=== PATIENT | female | born 1985 | race Caucasian/White ===

== ENCOUNTER → 2017-04-17 16:45 | Outpatient (CLI) | payer BC, SELFPAY ==
[2017-04-17 18:34] LABS: Amphetamine Urine VISTA NEGATIVE (<1000 ng/mL); Barbiturate Urine VISTA NEGATIVE (< 200 ng/mL); Benzodiazepine Urine VISTA NEGATIVE (< 200 ng/mL); Cocaine Urine VISTA NEGATIVE (< 300 ng/mL); Ecstacy Urine VISTA NEGATIVE (< 500 ng/mL); Methadone Urine VISTA NEGATIVE (< 300 ng/mL); PCP Urine VISTA NEGATIVE (< 25 ng/mL); THC Urine VISTA NEGATIVE (< 50 ng/mL); Vista UDS pH Range 5
== END ==
PROVIDERS: Visit Provider Anesthesiology Pain Medicine
DX: F11.20 Opioid dependence, uncomplicated (principal)
CPT/HCPCS: 80307

== ENCOUNTER 2017-04-18 15:35 | Outpatient (RCR) | payer BC, SELFPAY ==
--- NOTE | 2017-04-28 00:22 | HP.PTEVAL ---
Patient's Visit Information RICHARD PHILLIPS is a 31 year old F referred to Physical Therapy by Maribel CATHERINE with a diagnosis of neck and arm pain. Date of Evaluation: 04/18/17 Physical Therapist: Jonathan Caro - Visit Plan Frequency: 2x /Week Duration: 4 Weeks Plan: Start with modalities to reduce symptoms, progressing to light PA mobs and cervical extension progress. Pt. may benefit from MRI at this point in time due to sensitively of symptoms and marked UE weakness. - Subjective Subjective: Pt. is here today for her initial evaluation with diagnosis of neck and arm pain. Pt. reports having a history of neck and back pain. Pt. reports no mechanism of injury with her current neck pain. 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 Pt. reports having N/T down both arms, no weakness noted. Pt. has increased pain: with lifting, looking up and down, driving, sleeping and working. Decreased pain- nothing really. Pt. reports having head aches as well. Pt. describes pain throughout cervical spine, UT, levator scapulea and radiating down her arms. Pt. is hopeful to reduce symptoms in order to complete her job without symptoms or limitations. - Pain neck Pain Intensity (Out of 10): 4 Pain Intensity Range: 4, 8 Bilateral UEs Pain Intensity (Out of 10): 4 Pain Intensity Range: 4, 8 - Objective POSTURE: FH positioning, rounded shoulders with overall slouched posture. Pt. has protracted scaulea bilaterally. PALAPTION: Pt. reprots having high levels of tenderness to bilateral UT to light touch. Pt. has high levels of pain throughout light palpation of cervical erector spinea and with grade III spring testing of C4-T1. Pt. has high levels of pain to light touch throughout cervical spine and scapualr muscles. NEUROLOGICAL: Pt. has normal sensation throughout bilateral UEs to light and sharp touch. Pt. has 2+ biceps and triceps DTR bilaterally. Pt. has no upper limbs tension noted with testing. ROM: CERVICAL SPINE- flexion nil loss increase NW, ext min loss increase NW, rotation min loss bilat increase NW, SB min loss increase NW bilat. Pt. has normal shoulder ROM without incrase in symptoms. MMT: CERVICAL SPINE- normal isometric testing- but pain noted with all testing. RUE- wrist/elbow 5/5 throughout; shoulder- flexuon 4+/5, abd 4/5, ext 5/5, ER 5/5, IR 5/5. LUE- wrist/elbow 5/5 throughout; shoulder- flexion 4+/5, abd 4+/5, ER 4+/5, IR 4/5, ext 4+/5. STABLE HELPER STRENGTH- RUE- 23#, 28#, 33#. LUE- 43#, 48#, 41#. Pt. is R hand dominant - Special Tests C/S Radiculapathy - Left Spurlings: Positive C/S Radiculapathy - Right Spurlings: Positive C/S Radiculapathy - Left Cervical distraction: Negative C/S Radiculapathy - Right Cervical distraction: Negative C/S Radiculapathy - Left Relief test: Negative C/S Radiculapathy - Right Relief test: Negative Sharp Cesar: Negative Vertebral Artery Test: Negative Alar Ligament Test: Negative Comments: pt. had dizziness with distraction, but neg. vetebral artery test Cervical Sitting: Protrusion - Mechanical Response: No effect Cervical Sitting: Protrusion - Symptoms During Testing: Increases Cervical Sitting: Protrusion - Symptoms After Testing: No worse Cervical Sitting: Retraction - Mechanical Response: No effect Cervical Sitting: Retraction - Symptoms During Testing: Increases Cervical Sitting: Retraction - Symptoms After Testing: Worse Cervical Sitting: Retraction-Extension - Mechanical Response: No effect Cerv Sitting: Retraction-Extension - Symptoms During Testing: Increases Cerv Sitting: Retraction-Extension - Symptoms After Testing: Worse Cervical Sitting: Sidebend Right - Mechanical Response: No effect Cervical Sitting: Sidebend Right - Symptoms During Testing: Increases Cervical Sitting: Sidebend Right - Symptoms After Testing: No worse Cervical Sitting: Sidebend Left - Mechanical Response: No effect Cervical Sitting: Sidebend Left - Symptoms During Testing: Increases Cervical Sitting: Sidebend Left - Symptoms After Testing: No worse Cervical Sitting: Rotation Right - Mechanical Response: No effect Cervical Sitting: Rotation Right - Symptoms During Testing: Increases Cervical Sitting: Rotation Right - Symptoms After Testing: No worse Cervical Sitting: Rotation Left - Mechanical Response: No effect Cervical Sitting: Rotation Left - Symptoms During Testing: Increases Cervical Sitting: Rotation Left - Symptoms After Testing: No worse Cervical Sitting: Flexion - Mechanical Response: No effect Cervical Sitting: Flexion - Symptoms During Testing: Increases Cervical Sitting: Flexion - Symptoms After Testing: No worse - Goals Goal 1:: Pt. to be I with HEP. Goal Time Frame: 4-6 Weeks Goal 2:: Pt. to have increased cervical spine ROM by 25% in all directions without increase in symptoms. 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 Goal Time Frame: 4-6 Weeks Goal 4:: Pt. to sleep without increase in symptoms allowing for increased quality of life. Goal Time Frame: 4-6 Weeks Goal 5:: Pt. to complete all work related activities without increase in symptoms. Goal Time Frame: 4-6 Weeks - Rehabilitation Potential Physical Therapy Diagnosis: Pt. has signs and symptoms consistent with nerve involvement, but was inconclusive secondary to higher levels of pain involved with all testing. Pt. did not have a directional prefernce with cervical spine testing this date. My concerns with this patient was her reports of dizziness with testing, MRI may be warranted at this point in time. Rehabilitation Potential: Fair - Anticipated Interventions Patient/Client Instruction: Educate patient on: Condition, Plan of Care, Risk Factors, Benefits of Fitness Program For the Purpose of:: To improve health and function, To foster healthy habits, To improve decision making, To facilitate caregiver knowledge, To improve self management, To prevent re-injury, To improve ability to perform tasks related to life management, To improve tolerance to ADL's Therapeutic Exercise to Include: Strength training, Power training, Body mechanics, Postural training, Flexibilty training, Passive ROM, Active ROM, Chary Exercises, Scapular Strength/Stabilization For the Purpose of:: To decrease pain, To decrease swelling/inflammation, To increase ROM, To improve nutrient delivery to tissue, To increase oxygenation perfusion, To improve muscle performance and motor function, To improve ability to perform ADL's, To increase tolerance to activity/condition/position, To improve performance and independence with ADL's, To decrease level of supervision to perform tasks, To improve health of tissue, To decrease soft tissue restriction Manual Therapy Techniques to Include: Trigger point massage, Mobilization, Functional dry needling, Soft tissue mobilization For the Purpose of:: To decrease pain, To decrease swelling/inflammation, To increase ROM, To improve nutrient delivery to tissue, To increase oxygenation perfusion, To improve muscle performance and motor function IF ES: Yes Cryotherapy (ice pack, ice massage): Yes Thermo therapy (hot pack): Yes Ultrasound (thermal/non thermal): Yes For the Purpose of:: To decrease pain, To increase ROM, To improve nutrient delivery to tissue, To increase oxygenation perfusion, To improve muscle performance and motor function Thank you for the opportunity to evaluate your patient. For Medicare and Medicare HMO plans, please review the plan of care and approve it. It will need to be FAXED BACK to us at [phone] for Medicare purposes. Please let me know if there are questions or concerns regarding this plan of care. Physician Signature: Date:
--- NOTE | 2017-06-09 13:33 | HP.PT.NRP ---
HP - Discharge Summary (1) - Patient Information RICHARD PHILLIPS was seen in my office for initial evaluation on 04/18/17. The following Plan of Care was established for this patient: Initial Frequency: 2x /Week Initial Duration: 4 Weeks - Anticipated Interventions Patient/Client Instruction: Educate patient on: Condition, Plan of Care, Risk Factors, Benefits of Fitness Program For the Purpose of:: To improve health and function, To foster healthy habits, To improve decision making, To facilitate caregiver knowledge, To improve self management, To prevent re-injury, To improve ability to perform tasks related to life management, To improve tolerance to ADL's Therapeutic Exercise to Include: Strength training, Power training, Body mechanics, Postural training, Flexibilty training, Passive ROM, Active ROM, Chary Exercises, Scapular Strength/Stabilization For the Purpose of:: To decrease pain, To decrease swelling/inflammation, To increase ROM, To improve nutrient delivery to tissue, To increase oxygenation perfusion, To improve muscle performance and motor function, To improve ability to perform ADL's, To increase tolerance to activity/condition/position, To improve performance and independence with ADL's, To decrease level of supervision to perform tasks, To improve health of tissue, To decrease soft tissue restriction Manual Therapy Techniques to Include: Trigger point massage, Mobilization, Functional dry needling, Soft tissue mobilization For the Purpose of:: To decrease pain, To decrease swelling/inflammation, To increase ROM, To improve nutrient delivery to tissue, To increase oxygenation perfusion, To improve muscle performance and motor function IF ES: Yes Cryotherapy (ice pack, ice massage): Yes Thermo therapy (hot pack): Yes Ultrasound (thermal/non thermal): Yes For the Purpose of:: To decrease pain, To increase ROM, To improve nutrient delivery to tissue, To increase oxygenation perfusion, To improve muscle performance and motor function This patient was last seen in our office 04/18/17. Pertinent comments regarding their Physical therapy will appear below: Pt. was seen for her initial evaluation for her neck pain. Pt. has not been seen in PT since, ~7 weeks. She will be DC from PT at this point in time. At this point I will be discontinuing this patient from physical therapy. I would be happy to see this patient again in the future if found appropriate by the physician. Thank you! Jonathan Caro
== END 2017-04-18 19:00 | disposition home or self-care (01) ==
LOC: PT 15:35
PROVIDERS: Visit Provider Anesthesiology Pain Medicine
DX: M54.2 Cervicalgia (principal); M79.603 Pain in arm, unspecified
CPT/HCPCS: 97161

== ENCOUNTER 2017-04-21 02:16 | Emergency (ER) | payer BC, SELFPAY ==
[2017-04-21 02:17] VITALS: BP 132/88; PULSE 79; RESP 17; TEMP 36.8; O2SAT 99; BMI 20.6
--- NOTE | 2017-04-21 02:45 | ED.DCSUM_ITS ---
- ER Visit Summary Date of Service: 04/21/17 Chief Complaint: Constipation History of Present Illness: The patient is a 31 F past medical history of chronic back pain and kidney stones. States she has had a history of constipation in the past. Her last normal bowel movement was on Friday. She is a very small bowel movement on Friday. She has been using milk of magnesia and laxatives without relief. She denies any vomiting. She just says her stomach feels full though is not having abdominal pain. She denies any dysuria and currently is on her menstrual period. She denies any fever. Physical Examination: Well-appearing young female. Vital signs are stable afebrile. She does not look septic toxic. No acute distress. H EENT exam unremarkable moist mucous membranes. Neck nontender no lymphadenopathy. Lungs clear to auscultation bilaterally. Heart regular rhythm no murmur. Abdomen soft, nondistended nontender normal bowel sounds no peritoneal signs. There is no signs of obstruction. She is no hernias or masses. There is no localizing tenderness. Moving all 4 extremities. Back nontender. Neurologic exam normal. Test Results: None Emergency Department Course and Treatment: Treated for acute constipation with magnesium citrate at home. Treatment Plan: Discharge to home with magnesium citrate. She knows to return if worse. Disposition: Discharge Impression: Acute constipation This note was generated with [employer] dictation software. It may contain incorrect words, spelling, and punctuation that were not noted in review of the chart prior to signing ED Disposition - Plan for ED Patient: Chief Complaint: Constipation Referrals: Care Physician,No Primary [Primary Care Provider] -
--- NOTE | 2017-04-21 02:46 | ED.DEP ---
ED Disposition - Plan for ED Patient: Disposition: Home or Assisted Living Chief Complaint: Constipation Instructions: ED Constipation Referrals: Dinah Gonsalves MD [STAFF PHYSICIAN] - 1-2 Days if not improving Additional Instructions: Plenty of water, prune juice, fruits, vegetables, fiber granola. Use magnesium citrate and should no bowel movement within the next several hours. It may cause some cramping. Return to the ER if increasing pain, abdominal distention or intractable vomiting.
[2017-04-21] MEDS: Magnesium Citrate 300 ML PO (02:53)
== END 2017-04-21 03:05 | disposition home or self-care (01) ==
PROVIDERS: Emergency Provider Emergency Medicine
DX: K59.00 Constipation, unspecified (principal); M54.9 Dorsalgia, unspecified; G89.29 Other chronic pain; Z87.442 Personal history of urinary calculi
CPT/HCPCS: 99282

== ENCOUNTER → 2017-07-10 16:16 | Outpatient (CLI) | payer BC, SELFPAY ==
--- NOTE | 2017-07-10 16:20 | RAD_ITS ---
STUDY: X-RAY - LUMBAR SPINE REASON FOR EXAM: Female, 31 years old. No known injury. Has ongoing back pain. Has had epideral injections with Dr. Handley before per the patient.. TECHNIQUE: 3 view(s) of the lumbar spine were obtained. COMPARISON: None FINDINGS: Normal lumbar lordosis. There is no substantial scoliosis. There is a normal alignment of the vertebrae. Normal vertebral bodies and endplates. Normal disc space heights. The soft tissue structures are unremarkable. RAD/Lumbar Spine 2 or 3 Views IMPRESSION: Normal x-ray examination of the lumbar spine. Electronically Signed: Kiran Schwab MD at 8:33 EDT Tel , Service support ,
== END ==
LOC: RAD 16:17
PROVIDERS: Visit Provider Anesthesiology Pain Medicine
DX: M54.9 Dorsalgia, unspecified (principal)
CPT/HCPCS: 72100

== ENCOUNTER → 2018-05-06 17:16 | Outpatient (CLI) | payer SELFPAY ==
[2018-05-06 18:07] LABS: Amphetamine Urine VISTA NEGATIVE (<1000 ng/mL); Barbiturate Urine VISTA NEGATIVE (< 200 ng/mL); Benzodiazepine Urine VISTA NEGATIVE (< 200 ng/mL); Cocaine Urine VISTA NEGATIVE (< 300 ng/mL); Ecstacy Urine VISTA NEGATIVE (< 500 ng/mL); Methadone Urine VISTA NEGATIVE (< 300 ng/mL); PCP Urine VISTA NEGATIVE (< 25 ng/mL); THC Urine VISTA NEGATIVE (< 50 ng/mL); Vista UDS pH Range 7
== END ==
PROVIDERS: Referring Provider Anesthesiology Pain Medicine; Visit Provider Anesthesiology Pain Medicine
DX: F11.20 Opioid dependence, uncomplicated (principal)
CPT/HCPCS: 80307

== ENCOUNTER 2018-07-13 10:19 | Emergency (ER) | payer OTHER, SELFPAY ==
[2018-07-13 10:20] VITALS: BP 143/99; PULSE 70; RESP 16; TEMP 36.6; O2SAT 100; BMI 20.3
[2018-07-13 11:41] VITALS: BP 118/92; BP 125/82; BP 129/94; PULSE 60; PULSE 64; PULSE 65
[2018-07-13] MEDS: 0.9% Normal Saline 1,000 ML 1000 ML IV (11:45)
[2018-07-13 11:51] LABS: Absolute Lymphocyte Count 1.77 X10^3/ul (0.83-4.51); Absolute Neutrophil Count 6.4 X10^3/uL (2.0-7.7); Basophil# 0.02 X10^3/uL; Basophil% 0.2 % (0-1); Eosinophil# 0.05 X10^3/uL; Eosinophils% 0.6 % (0-5); Hematocrit 38.6 % (37-47); Hemoglobin 12.4 g/dl (12.0-15.0); Lymphocyte # 1.77 X10^3/ul (4.0); Lymphocyte % 20.1 % (19-41); Mean Corp Hgb Conc 32.1 g/gl (32-36); Mean Corpuscular Hgb 27.6 pg (27.0-32.0); Mean Corpuscular Volume 85.8 fL (81-99); Monocyte# 0.55 X10^3/uL; Monocyte% 6.3 % (0-10); Neutrophil # 6.38 X10^3/uL (2.7-7.7); Neutrophil % 72.6 % (47-70); Platelet Count 371 K/mm3 (150-450); RBC Distribution Width CV 15.3 % (11.6-14.6); RBC Distribution Width SD 48.4 fl (35.1-43.9); White Blood Count 8.8 K/mm3 (4.4-11.0)
[2018-07-13 11:54] LABS: POSITIVE COUNT NO; POSITIVE DIFFERENTIAL NO; POSITIVE MORPHOLOGY NO
[2018-07-13 12:01] LABS: Anion Gap 8 (5-15); BUN 8 mg/dL (7-18); BUN/Creat Ratio 9.4 RATIO (10-20); Calcium,Total 8.9 mg/dL (8.5-10.1); Chloride 107 mmol/L (98-107); Creatinine, Serum 0.85 mg/dL (0.55-1.02); EST Glomerular Filtration Rate 83 mL/min (>60); Est Glom Filt Rate - Afr Amer 100 mL/min (>60); Estimated Creatinine Clearance 78.97 ml/min; Glucose 84 mg/dL (74-106); Sodium Level 139 mmol/L (136-145)
[2018-07-13 12:29] LABS: Internal QC Validated? YES +Cl - CLEAR BKGD; Pregnancy, Serum, hCG Quali. NEGATIVE Negative
--- NOTE | 2018-07-13 13:33 | ED.DCSUM_ITS ---
- ER Visit Summary Date of Service: 07/13/18 Chief Complaint: [Lightheadedness and vaginal bleeding] History of Present Illness: The patient is a 32 F [presents the emergency department complaint of feeling lightheaded and dizzy today. Patient states that she started her menstrual period yesterday. Patient has had some issues with irregular bleeding and up until a week ago she had taken some sort of a hormone to help regulate her bleeding. Patient states that she stopped bleeding for about a week and then the bleeding started again yesterday. This morning she is felt nauseated. Patient states that she has had bleeding like a heavy type. Has gone through 3 pads this morning. Patient does not think she is . Patient has history of fibromyalgia.] Physical Examination: [HEENT-PERRLA, EOMI. Cranial nerves II through XII grossly intact. TMs clear. Mucous membranes moist. No adenopathy. Cardiovascular-regular rate and rhythm without murmur or ectopy Lungs-clear to auscultation, chest wall stable without crepitus or subcu emphysema Abdomen-normoactive bowel sounds, soft, nontender, no rebound or rigidity, no peritoneal signs. Extremities-intact ?4, normal range of motion, normal pulses, atraumatic] Test Results: [Orthostatic vital signs were negative. CBC with additional count of 8.8, hemoglobin 12, hematocrit 39, placed 371. Chemistries unremarkable. hCG was negative.] Emergency Department Course and Treatment: [I discussed case with Dr. Quintero who will have her office call the patient today to set up a follow-up appointment within the next 1 to 2 days. 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 It may contain incorrect words, spelling, and punctuation that were not noted in review of the chart prior to signing ED Disposition - Plan for ED Patient: Referrals: Carlos Alberto Troncoso PA [Primary Care Provider] -
--- NOTE | 2018-07-13 13:33 | ED.DEP ---
ED Disposition - Plan for ED Patient: Instructions: ED Dizziness UKO, ED Bleed Irregular Vaginal Referrals: Carlos Alberto Troncoso PA [Primary Care Provider] - Fela Quintero DO [STAFF PHYSICIAN] - 1-2 Days if not improving
[2018-07-13 13:42] VITALS: BP 120/84; PULSE 66; RESP 17; O2SAT 100
--- NOTE | 2018-07-13 13:42 | ED.RN ---
IV DC'ED, CATHETER INTACT, SMALL GAUZE DRESSING PLACED. DISCHARGE INSTRUCTIONS GIVEN TO AND REVIEWED WITH PATIENT, PATIENT DENIES QUESTIONS OR CONCERNS AND VOICES UNDERSTANDING OF DISCHARGE INSTRUCTIONS. PT AMBULATES OUT OF ROOM WITHOUT DIFFICULTY.
== END 2018-07-13 13:42 | disposition home or self-care (01) ==
LOC: ED 11:14
PROVIDERS: Emergency Provider Emergency Medicine; Family Provider Physician Assistant; PCP Physician Assistant
DX: R42 Dizziness and giddiness (principal); N93.9 Abnormal uterine and vaginal bleeding, unspecified; R11.0 Nausea; M79.7 Fibromyalgia; Z79.899 Other long term (current) drug therapy
CPT/HCPCS: 80048; 84703; 85025; 96360; 96361; 99284; J7030; A4216

== ENCOUNTER 2019-10-07 12:21 | Emergency (ER) | payer OTHER, BC, SELFPAY ==
[2019-10-07 12:22] VITALS: BP 142/91; PULSE 72; RESP 14; TEMP 36.7; O2SAT 100
--- NOTE | 2019-10-07 13:04 | ED.VISSUMM ---
- ER Visit Summary Date of Service: 10/07/19 Chief Complaint: Lightheadedness History of Present Illness: The patient is a 33 F who presents with lightheadedness that began today while she was at work. Patient states she was working in the heat. Patient states she has a sensitivity to heat. Patient states that she felt lightheaded and felt like she was going to pass out. Patient states she drank a gallon of water today and does not think she is dehydrated. Patient denies any fevers or chills. Patient denies any nausea or vomiting. Patient denies any chest pain or shortness of breath. Physical Examination: Vital signs are stable. Patient is afebrile. Patient is in no acute distress. Oral mucosa is pink and moist. Neck is supple. Trachea is midline. There is no JVD noted. Heart was regular rate and rhythm. Lungs are clear and equal bilaterally. Abdomen is soft. Bowel sounds are normal. There is no tenderness. There is no rebound or guarding noted. Skin is warm dry. Cranial nerves II through XII are intact. There are no focal motor or sensory deficits noted. Extremities are intact. There is no calf tenderness or edema. Test Results: CBC and basic metabolic profile were within normal limits. Emergency Department Course and Treatment: Patient was advised of her results. Patient is feeling better on reevaluation. Patient was instructed to follow-up with her primary care physician in 5 to 7 days. Patient was given a note for work for today. Patient understood and was agreeable with the plan. All questions were answered. Disposition: Discharge home Impression: Heat exhaustion This note was generated with [employer] dictation software. It may contain incorrect words, spelling, and punctuation that were not noted in review of the chart prior to signing ED Disposition - Plan for ED Patient: Disposition: Home or Assisted Living Diagnosis: Heat exhaustion Instructions: ED Exhaustion Heat Referrals: Carlos Alberto Troncoso PA [Primary Care Provider] - 5-7 Days
[2019-10-07 13:55] LABS: Anion Gap 4 (5-15); BUN 10 mg/dL (7-18); BUN/Creat Ratio 11.5 RATIO (10-20); Calcium,Total 8.9 mg/dL (8.5-10.1); Chloride 107 mmol/L (98-107); Creatinine, Serum 0.87 mg/dL (0.55-1.02); EST Glomerular Filtration Rate 79 mL/min (>60); Est Glom Filt Rate - Afr Amer 96 mL/min (>60); Estimated Creatinine Clearance 75.33 ml/min; Glucose 85 mg/dL (74-106); Sodium Level 138 mmol/L (136-145)
[2019-10-07 13:56] LABS: Absolute Lymphocyte Count 2.61 X10^3/uL (0.83-4.51); Absolute Neutrophil Count 6.5 X10^3/uL (2.0-7.7); Basophil# 0.04 X10^3/uL; Basophil% 0.4 % (0-1); Eosinophil# 0.05 X10^3/uL; Eosinophils% 0.5 % (0-5); Hematocrit 41.7 % (37-47); Hemoglobin 13.2 g/dL (12.0-15.0); Lymphocyte # 2.61 X10^3/ul (4.0); Lymphocyte % 26.2 % (19-41); Mean Corp Hgb Conc 31.7 g/dL (32-36); Mean Corpuscular Volume 85.3 fL (81-99); Mean Platelet Vol. 9.1 fl (6.2-12.0); Monocyte# 0.67 X10^3/uL; Monocyte% 6.7 % (0-10); NRBC Flagged by Analyzer 0 % (0-5); Neutrophil # 6.53 X10^3/uL (2.7-7.7); Neutrophil % 65.6 % (47-70); Platelet Count 339 K/mm3 (150-450); RBC Distribution Width CV 14.8 % (11.6-14.6); RBC Distribution Width SD 46.2 fl (35.1-43.9); Red Blood Count 4.89 M/mm3 (4.2-5.4)
== END 2019-10-07 14:25 | disposition home or self-care (01) ==
PROVIDERS: Emergency Provider Emergency Medicine; PCP Physician Assistant
DX: T67.5XXA Heat exhaustion, unspecified, initial encounter (principal); X58.XXXA Exposure to other specified factors, initial encounter; Y93.9 Activity, unspecified; Y92.9 Unspecified place or not applicable; Y99.0 Civilian activity done for income or pay; M79.7 Fibromyalgia; Z79.899 Other long term (current) drug therapy
CPT/HCPCS: 80048; 85025; 99283; A4216

== ENCOUNTER → 2019-10-20 17:15 | Outpatient (CLI) | payer OTHER, BC, SELFPAY | PROVIDERS: PCP Physician Assistant; Referring Provider Family Medicine; Visit Provider Family Medicine | DX: Z20.828 Contact with and (suspected) exposure to other viral communicable diseases (principal) | CPT/HCPCS: 87635; C9803; U0003 ==

== ENCOUNTER 2021-05-03 12:15 | Outpatient (CLI) | payer BC, SELFPAY ==
[2021-05-03 13:53] LABS: Amphetamine Urine VISTA NEGATIVE (<1000 ng/mL); Barbiturate Urine VISTA NEGATIVE (< 200 ng/mL); Benzodiazepine Urine VISTA NEGATIVE (< 200 ng/mL); Cocaine Urine VISTA NEGATIVE (< 300 ng/mL); Ecstacy Urine VISTA NEGATIVE (< 500 ng/mL); Methadone Urine VISTA NEGATIVE (< 300 ng/mL); PCP Urine VISTA NEGATIVE (< 25 ng/mL); THC Urine VISTA NEGATIVE (< 50 ng/mL); Vista UDS pH Range 5
== END 2021-05-03 23:59 | disposition home or self-care (01) ==
PROVIDERS: Referring Provider Anesthesiology Pain Medicine; Visit Provider Anesthesiology Pain Medicine
DX: F11.20 Opioid dependence, uncomplicated (principal)
CPT/HCPCS: 80307

== ENCOUNTER → 2022-08-16 | Outpatient (CLI) | payer BC, SELFPAY ==
[2022-08-16 17:51] LABS: Thyroid Stim Hormone (TSH) 0.64 uIU/mL (0.358-3.74)
== END | disposition home or self-care (01) ==
PROVIDERS: PCP Nurse Practitioner Family; Referring Provider Obstetrics & Gynecology; Visit Provider Obstetrics & Gynecology
DX: N97.0 Female infertility associated with anovulation (principal)
CPT/HCPCS: 36415; 84443

== ENCOUNTER → 2023-04-04 | Outpatient (CLI) | payer BC, SELFPAY ==
[2023-04-04 16:20] LABS: Absolute Lymphocyte Count 2.37 X10^3/uL (0.83-4.51); Absolute Neutrophil Count 9.3 X10^3/uL (2.0-7.7); Basophil# 0.07 X10^3/uL; Basophil% 0.6 % (0-1); Eosinophil# 0.07 X10^3/uL; Eosinophils% 0.6 % (0-5); Hematocrit 37.8 % (37-47); Hemoglobin 11.9 g/dL (12.0-15.0); Lymphocyte # 2.37 X10^3/ul (0.83-4.51); Lymphocyte % 18.7 % (19-41); Mean Corp Hgb Conc 31.5 g/dL (32-36); Mean Corpuscular Volume 88.9 fL (81-99); Mean Platelet Vol. 9.1 fl (6.2-12.0); Monocyte% 6.3 % (0-10); NRBC Flagged by Analyzer 0 % (0-5); Neutrophil # 9.28 X10^3/uL (2.7-7.7); Neutrophil % 73.2 % (47-70); Platelet Count 289 K/mm3 (150-450); RBC Distribution Width CV 14.9 % (11.6-14.6); RBC Distribution Width SD 48.8 fl (35.1-43.9); Red Blood Count 4.25 M/mm3 (4.2-5.4); White Blood Count 12.7 K/mm3 (4.4-11.0)
[2023-04-04 16:56] LABS: Progesterone Level 3.21 ng/mL (See Comment)
--- OUTSIDE RECORDS SUMMARY | 2023-04-04 18:43 | XMS RPT_ITS | CCD ---
Author Name Unknown Address [address] [place] [address] Organization [facility] Care Team Providers Care [employer] Installer Name Role Phone [place] Attending Unava ilable LAUR[place], [facility] Primary Care Unava ilable POMER[place], [facility] Admitting Unava ilable Henrique Harveya S Unavailable Carlos Alberto Troncoso PA-C Primary Care Provider Deysi Harvey S Unavailable Carlos Alberto Troncoso PA-C Primary Care Provider NEO DAS APRN, CNP [facility], CNP Primary Care U DERREK Barksdale MD Attending Unavailable NEO DAS APRN, CNP Primary Care U MIKEY Price CNP Attending Unavailabl e NEO DAS APRN, CNP Attending U NEO Duke APRN, CNP Primary Care U Neo Artis CNP Primary Care Provider NEO BACH Primary Care Unavailable BIENVENIDO WILLIAMSON Referring Unavailable NEO BACH Primary Care Unavailable Carlos Alberto TRONCOSO Primary Care Unavailable Medications Current Medications Medication Drug Class(es) Dates Sig (Normalized) Sig (Original) acetaminophen 500 mg oral tablet (5 sources) Start: 02-27-2022 acetaminophen 500 mg oral tablet Dose : 1,000 mg = 2 tab(s), Oral, TID, PRN pain or fever, 0 Refill(s) Start Date: 02/27/22 Status: Ordered Completed/Discontinued Medications Medication Drug Class(es) Dates Sig (Normalized) Sig (Original) DULoxetine 30 mg delayed release oral capsule (3 sources) Serotonin and Norepinephrine Reuptake Inhibitor Start: 11-06-2021 take 1 capsule by mouth once daily DULoxetine (CYMBALTA) 30 mg capsule Take 30 mg by mouth once daily. 0 11/06/2021 Active Problems Problem Classification Problem Date Documented Da te Episodic/Chronic Calculus of urinary tract (6 sources) Kidney stone; Translations: [Calculus of kidney] 08-19-2013 Episodic Esophageal disorders (2 sources) Gastric reflux 10-16-2021 Chronic Headache; including migraine (2 sources) Headache 02-13-2022 Episodic Immunizations and screening for infectious disease (1 source) Suspected disease caused by 2019-nCoV; Translations: [Suspected COVID-19 virus infection] Episodic Other and unspecified benign neoplasm (2 sources) Benign neoplasm of muscle 11-06-2021 Episodic Other female genital disorders (6 sources) Cervical intraepithelial neoplasia grade 1; Translations: [Mild cervical dysplasia] 05-09-2011 Episodic Other lower respiratory disease (2 sources) Cough; Translations: [Subacute cough] Episodic Other non-traumatic joint disorders (1 source) Pain of right wrist; Translations: [Pain in right wrist] 01-15-2023 Episodic Other upper respiratory infections (2 sources) Acute sinusitis; Translations: [Acute sinusitis, unspecified] Episodic Ovarian cyst (6 sources) Cyst of ovary; Translations: [Unspecified ovarian cyst, unspecified side] 05-19-2014 Episodic Residual codes; unclassified (2 sources) Did not attend 12-17-2021 Episodic Results Test Name Value Interpretation Reference Range Facil ity Vital Signs Date Time Vital Sign Value Performing Clinician Jose estrella 01-15-2023 10:30-0500 Body temperature 97.9 [degF] Bienvenido Williamson APRN.CNP Work Phone: [facility] 01-15-2023 10:30-0500 Body weight 55.34 kg Bienvenido Williamson APRN.CNP Work Phone: [facility] 01-15-2023 10:30-0500 Diastolic blood pressure 78 mm[Hg] Bienvenido Clay CARE NAVIGATOR.SR. PAYROLL MANAGER Work Phone: [facility] 01-15-2023 10:30-0500 Heart rate 85 /min Bienvenido Williamson CARE NAVIGATOR.SR. PAYROLL MANAGER Work Phone: [facility] 01-15-2023 10:30-0500 Respiratory rate 21 /min Bienvenido Williamson CARE NAVIGATOR.SR. PAYROLL MANAGER Work Phone: [facility] 01-15-2023 10:30-0500 SaO2% (BldA) [Mass fraction] 99 % Bienvenido Williamson CARE NAVIGATOR.SR. PAYROLL MANAGER Work Phone: [facility] 01-15-2023 10:30-0500 Systolic blood pressure 122 mm[Hg] Bienvenido Williamson CARE NAVIGATOR.SR. PAYROLL MANAGER Work Phone: [facility] 02-04-2022 15:05-0500 Body temperature 98.4 [degF] Aaron Jean Baptiste MD Work Phone: [facility] 02-04-2022 15:05-0500 Body weight 53.71 kg Aaron Jean Baptiste MD Work Phone: [facility] 02-04-2022 15:05-0500 Diastolic blood pressure 88 mm[Hg] Aaron Jean Baptiste MD Work Phone: [facility] 02-04-2022 15:05-0500 Heart rate 87 /min Aaron Jean Baptiste MD Work Phone: [facility] 02-04-2022 15:05-0500 Respiratory rate 20 /min Aaron Jean Baptiste MD Work Phone: [facility] 02-04-2022 15:05-0500 SaO2% (BldA) [Mass fraction] 98 % Aaron Jean Baptiste MD Work Phone: [facility] 02-04-2022 15:05-0500 Systolic blood pressure 122 mm[Hg] Aaron Jean Baptiste MD Work Phone: [facility] Encounters Encounter Date Encounter Type Care Provider Facility Start: 01-15-2023 End: 01-15-2023 ambulatory NEO BACH Facility:[facility] Start: 01-15-2023 End: 01-15-2023 Patient encounter procedure Bienvenido Williamson APRN.CNP Work Phone: [facility] Procedures Date Procedure Procedure Detail Performing Clinician Start: 01-15-2023 Radex wrist complete minimum 3 views Bienvenido Williamson APRN.CNP Work Phone: Start: 03-31-2020 Adult depression screening assessment Katherine Garcia RN Plan of Treatment Date Care Activity Detail Author Start: 05-22-2030 Urine microalbumin profile DTaP,Tdap,Td Vaccine (10 - Td or Tdap) [facility] Start: 03-23-2025 Urine microalbumin profile DTAP,TDAP,TD (8 - Td or Tdap) [facility] Start: 11-14-2022 HPV TESTING HPV TESTING [facility] Start: 11-14-2022 PAP TESTING PAP TESTING [facility] Start: 10-11-2022 Influenza vaccination Influenza Vaccine (#1) [facility] Start: 02-10-2022 DEPRESSION ASSESSMENT DEPRESSION ASSESSMENT [facility] Start: 10-11-2021 Influenza vaccination INFLUENZA (#1) [facility] Start: 09-04-2021 End: 09-18-2021 Influenza virus A and B RNA and SARS-CoV-2 (COVID-19) N gene panel - Respiratory specimen by LEEANN with probe detection COVID WITH FLUA+B, ROUTINE Microbiology Routine Suspected COVID-19 virus infection Expected: 09/04/2021, Expires: 09/18/2021 [facility] Work Phone: Immunizations Immunization Date Immunization Notes Care Provider Vishal solano 12-16-2016 influenza, seasonal, injectable Katherine Garcia RN [facility] Work Phone: 12-16-2016 influenza virus vaccine, unspecified formulation Bienvenido Williamson APRN.CNP Work Phone: [facility] 11-01-2015 influenza, seasonal, injectable, preservative free Katherine Garcia RN [facility] 03-23-2015 tetanus toxoid, redu abdulaziz diphtheria toxoid, and acellular pertussis vaccine, adsorbed Katherine Garcia RN [facility] 11-23-2014 influenza, injectabl e, quadrivalent, contains preservative Katherine Garcia RN [facility] 11-10-2014 influenza, injectabl e, quadrivalent, preservative free Katherine Garcia RN [facility] 08-15-2014 tetanus toxoid, redu abdulaziz diphtheria toxoid, and acellular pertussis vaccine, adsorbed Katherine Garcia RN [facility] 04-10-2013 influenza, seasonal, injectable, preservative free Katherine Garcia RN [facility] 02-23-2013 influenza virus vaccine, unspecified formulation Katherine Garcia RN [facility] 11-10-2010 influenza virus vaccine, unspecified formulation Katherine Garcia RN [facility] Work Phone: 01-30-2007 Meningococcal, MCV4, unspecified conjugate formulation(groups A, C, Y and W-135) Katherine Garcia RN [facility] Work Phone: 04-19-2003 hepatitis B vaccine, pediatric or pediatric/adolescent dosage Katherine Garcia [facility] Work Phone: 04-19-2003 tetanus and diphther ia toxoids, not adsorbed, for adult use Katherine Garcia RN [facility] Work Phone: 11-03-2000 hepatitis B vaccine, pediatric or pediatric/adolescent dosage Katherine Garcia RN [facility] Work Phone: 10-02-2000 hepatitis B vaccine, pediatric or pediatric/adolescent dosage Katherine Garcia [facility] Work Phone: 10-02-2000 measles, mumps and rubella virus vaccine Katherine Garcia RN [facility] Work Phone: 12-30-1991 diphtheria, tetanus toxoids and pertussis vaccine Katherine Garcia RN [facility] Work Phone: 12-30-1991 trivalent poliovirus vaccine, live, oral Katherine Garcia RN [facility] Work Phone: 04-27-1990 haemophilus influenz ae type b vaccine, HbOC conjugate Katherine Garcia [facility] Work Phone: 05-07-1988 diphtheria, tetanus toxoids and pertussis vaccine Katherine Garcia RN [facility] Work Phone: 05-07-1988 measles, mumps and rubella virus vaccine Katherine Garcia RN [facility] Work Phone: 05-07-1988 trivalent poliovirus vaccine, live, oral Katherine Garcia RN [facility] Work Phone: 11-21-1987 diphtheria, tetanus toxoids and pertussis vaccine Katherine Garcia RN [facility] Work Phone: 05-05-1987 diphtheria, tetanus toxoids and pertussis vaccine Katherine Garcia RN [facility] Work Phone: 05-05-1987 trivalent poliovirus vaccine, live, oral Katherine Garcia [facility] Work Phone: 03-02-1987 diphtheria, tetanus toxoids and pertussis vaccine Katherine Garcia [facility] Work Phone: 03-02-1987 trivalent poliovirus vaccine, live, oral Katherine Garcia [facility] Work Phone: Payers Date Payer Category Payer Unknown [id number] 2021 Unknown [id number] 2021 Unknown [employer] C[employer] PPO OOS [id number] 2021-Present [phone] [address] [place] [address] PPO [id number] 2021 Unknown [id number] 2021 Unknown [id number] 1986 Unknown [id number] 1986 Unknown [id number] 1986 Unknown [id number] Social History Date Type Detail Facility Start: 02-04-2022 End: 02-13-2022 Tobacco smoking status NHIS Never smoked tobacco [facility] Start: 03-19-2021 End: 01-15-2023 Alcohol intake Current drinker of alcohol (finding) [facility] Start: 09-04-2021 History SDOH Alcohol Frequency 1 [facility] Start: 09-04-2021 History SDOH Alcohol Std Drinks 98 [facility] Start: 10-29-2010 History SDOH Alcohol Comment ocassionally [facility] Start: 09-04-2021 History SDOH Social Connections Phone 2 [facility] Start: 09-04-2021 History SDOH Social Connections Get Together 4 [facility] Start: 09-04-2021 History SDOH Social Connections Living 3 [facility] Start: 09-04-2021 History SDOH Physica l Activity DPW 5 [facility] Start: 09-04-2021 History SDOH Physica l Activity MPS 6 [facility] Start: 03-31-2020 Education 14 [facility] Start: 1985 Sex Assigned At Not on file C [facility] Start: 08-25-2021 End: 09-06-2021 Exposure to SARS-CoV-2 (event) Yes [facility] Start: 02-04-2022 Tobacco use and exposure Smoke less tobacco non-user [facility] Sex Assigned At Sex [facility] Start: 09-04-2021 End: 03-06-2022 History of Social function [facility] Start: 09-04-2021 End: 03-06-2022 Social connection and isolation panel [facility] Do you belong to any clubs or organizations such as scientologist groups, unions, fraternal or athletic groups, or school groups? No [facility] Are you now , , , , never or living with a partner? [facility] How often to you hav e a drink containing alcohol? Never [facility] How many standard dr inks containing alcohol do you have on a typical day? Patient refused [facility] Do you feel stress - tense, restless, nervous, or anxious, or unable to sleep at night because your mind is troubled all the time - these days [OSQ] Not at all [facility] (I/We) worried wheth er (my/our) food would run out before (I/we) got money to buy more. Never true [facility] Clinical Notes 02-08-2015 to 01-15-2023 Bienvenido Williamson APRN.SABINA - 01/15/2023 11:02 AM OSIELLabKaitlynn Jean Baptiste MD - 02/04/2022 3:07 PM ESTPatient Allan Washburn APRN.SABINA - 09/06/2021 2:13 PM EDT Note Date & Type Note Facility 01-15-2023 Note HNO ID: [id number] Author: Bienvenido Williamson APRN.SR. PAYROLL MANAGER Service: ? Author Type: Nurse Practitioner Type: Progress Notes Filed: 01/15/2023 11:27 AM Note Text: Subjective HPI HPI Richard Segovia is a 37 year old female who presents today for CC of right wrist pain, radiating to elbow and shoulder now. This started today. Has tried otc medication for relief. Symptoms are worsened by rom. Risk factors, hx of right wrist fracture. .Patient presents with: Pain: Right wrist pain, moving up arm x 1 day PAST MEDICAL HISTORY Diagnosis Date Chronic back pain Fibromyalgia Hypoglycemia, unspecified loss of conciousness mild dysplasia of cervix Ovarian cyst Renal calculi 2013 PAST SURGICAL HISTORY Procedure Laterality Date COLONOSCOPY FLX DX W/COLLJ SPEC WHEN PFRMD 02/08/15 Colonoscopy COLPOSCOPY CERVIX UPPER/ADJACENT VAGINA Colposcopy ESOPHAGOGASTRODUODENOSCOPY TRANSORAL DIAGNOSTIC 02/08/15 EGD UNSPECIFIED ORAL SURGERY PROCEDURE, BY REPORT Opened gum line ALLERGIES Patient has no known allergies. MEDICATIONS pregabalin (LYRICA) 75 mg capsule Take 1 capsule by mouth every 12 hours. DULoxetine (CYMBALTA) 30 mg capsule Take 30 mg by mouth once daily. traMADol (ULTRAM) 50 mg tablet Take 1 tablet by mouth every 4 hours as needed for Pain. gabapentin (NEURONTIN) 100 mg capsule Take 100 mg by mouth three times daily. (Patient not taking: Reported on 01/15/2023) FAMILY HISTORY Problem Relation Age of Onset Thyroid Mother Hypertension Father Paternal AND Maternal sides Diabetes Father Heart Maternal Grandmother Social History Tobacco Use Smoking status: Never Smokeless tobacco: Never Vaping Use Vaping Use: Never used Substance Use Topics Alcohol use: Yes Comment: ocassionally Drug use: No ROS Objective Blood pressure 122/78, pulse 85, temperature 36.6 ?C (97.9 ?F), resp. rate 21, weight 55.3 kg (122 lb), last menstrual period 02/11/2021, SpO2 99%. Physical Exam Constitutional: General: She is not in acute distress. Appearance: She is not toxic-appearing or diaphoretic. HENT: Head: Normocephalic and atraumatic. Cardiovascular: Pulses: Radial pulses are 2+ on the right side. Pulmonary: Effort: Pulmonary effort is normal. No accessory muscle usage or respiratory distress. Musculoskeletal: Arms: Neurological: Mental Status: She is alert and oriented to person, place, and time. ASSESSMENT/PLAN: 1. Right wrist pain - ICD9: 719.43, ICD10: M25.531 -no bony abnormality noted on xray -Rest, Ice, Compression, Elevation discussed -follow up with primary care if symptoms persist/worsen in 10-14 days - XR WRIST GENERAL 3V PA/LAT/OBL RIGHT IMPRESSION: No radiographic evidence of acute osseous injury Dictated by : ALTAGRACIA NUNEZ MD - PREDNISONE 20 MG TABLET Bienvenido Williamson APRN.[facility] 01-15-2023 Note HNO ID: [id number] Author: Kayleigh Webber RT(R) Service: Radiology Author Type: Technologist Type: Progress Notes Filed: 01/15/2023 10:44 AM Note Text: Radiology Service Progress Note PATIENT NAME: Richard Segovia DATE OF SERVICE: January 15, 2023 TIME: 10:38 AM PATIENT IDENTITY VERIFICATION COMPLETED USING TWO (2) IDENTIFIERS: Name and Date of confirmed by patient verbally. FALL SCREENING: Has the patient had 2 falls in the last year or 1 fall with injury or currently using an Ambulatory Assistive Device (Walker, Cane, Wheelchair, Crutches, etc.)? No PATIENT GENDER DATA: Female. status: : No status: NO. PATIENT RELEVANT IMPLANT DATA REVIEWED: Not Applicable RADIOLOGY DEPARTMENT: General X-ray: Exam(s) Completed: Upper Extremity X-Ray(s): Wrist, right PERIPHERAL IV DATA: Not applicable SIGNED BY: Kayleigh Webber RT(R) January 15, 2023 10:38 AM [facility] 01-15-2023 History of Present illness Narrative Images from the original note were not included. Subjective HPI HPI Richard Segovia is a 37 year old female who presents today for CC of right wrist pain, radiating to elbow and shoulder now. This started today. Has tried otc medication for relief. Symptoms are worsened by rom. Risk factors, hx of right wrist fracture. .Patient presents with: Pain: Right wrist pain, moving up arm x 1 day PAST MEDICAL HISTORY Diagnosis Date Chronic back pain Fibromyalgia Hypoglycemia, unspecified loss of conciousness mild dysplasia of cervix Ovarian cyst Renal calculi 2013 PAST SURGICAL HISTORY Procedure Laterality Date COLONOSCOPY FLX DX W/COLLJ SPEC WHEN PFRMD 02/08/15 Colonoscopy COLPOSCOPY CERVIX UPPER/ADJACENT VAGINA Colposcopy ESOPHAGOGASTRODUODENOSCOPY TRANSORAL DIAGNOSTIC 02/08/15 EGD UNSPECIFIED ORAL SURGERY PROCEDURE, BY REPORT Opened gum line ALLERGIES Patient has no known allergies. MEDICATIONS pregabalin (LYRICA) 75 mg capsule Take 1 capsule by mouth every 12 hours. DULoxetine (CYMBALTA) 30 mg capsule Take 30 mg by mouth once daily. traMADol (ULTRAM) 50 mg tablet Take 1 tablet by mouth every 4 hours as needed for Pain. gabapentin (NEURONTIN) 100 mg capsule Take 100 mg by mouth three times daily. (Patient not taking: Reported on 01/15/2023) FAMILY HISTORY Problem Relation Age of Onset Thyroid Mother Hypertension Father Paternal & Maternal sides Diabetes Father Heart Maternal Grandmother Social History Tobacco Use Smoking status: Never Smokeless tobacco: Never Vaping Use Vaping Use: Never used Substance Use Topics Alcohol use: Yes Comment: ocassionally Drug use: No ROS Objective Blood pressure 122/78, pulse 85, temperature 36.6 C (97.9 F), resp. rate 21, weight 55.3 kg (122 lb), last menstrual period 02/11/2021, SpO2 99%. Physical Exam Constitutional: General: She is not in acute distress. Appearance: She is not toxic-appearing or diaphoretic. HENT: Head: Normocephalic and atraumatic. Cardiovascular: Pulses: Radial pulses are 2+ on the right side. Pulmonary: Effort: Pulmonary effort is normal. No accessory muscle usage or respiratory distress. Musculoskeletal: Arms: Neurological: Mental Status: She is alert and oriented to person, place, and time. ASSESSMENT/PLAN: 1. Right wrist pain - ICD9: 719.43, ICD10: M25.531 -no bony abnormality noted on xray -Rest, Ice, Compression, Elevation discussed -follow up with primary care if symptoms persist/worsen in 10-14 days - XR WRIST GENERAL 3V PA/LAT/OBL RIGHT IMPRESSION: No radiographic evidence of acute osseous injury Dictated by : ALTAGRACIA NUNEZ MD - PREDNISONE 20 MG TABLET Bienvenido Williamson APRN.SR. PAYROLL MANAGER documented in this encounter [facility] 04-25-2022 Evaluation + Plan note Future Scheduled TestsGiardia Antigen 04/25/22Stool Culture 04/25/22Complete Blood Count 04/25/22Lipid Profile 09/02/22Complete Metabolic Panel 09/02/22Complete Metabolic Panel 04/25/22 [facility] 02-04-2022 Note HNO ID: [id number] Author: Aaron Jean Baptiste MD Service: ? Author Type: Physician Type: Progress Notes Filed: 02/04/2022 3:21 PM Note Text: Patient presents with: Cough: Chest congestion x2 weeks HPI: Coughing for 2 weeks. The symptoms began with a URI. Coworkers have had bronchitis. Positive symptoms: cough-waxing and waning, chest burning, occasional Sore throat, Sinus pressure, Nasal Congestion, Rhinorrhea, Post nasal drainage, resolved initial fever, Chills, Negative symptoms: Shortness of breath, Wheezing, Chest pain, Vomiting, Diarrhea, OTC: cough and Cold Medicine Had COVID illness in August. PAST MEDICAL HISTORY Diagnosis Date Chronic back pain Fibromyalgia Hypoglycemia, unspecified loss of conciousness mild dysplasia of cervix Ovarian cyst Renal calculi 2013 MEDICATIONS: Current Outpatient Medications Medication Sig DULoxetine (CYMBALTA) 30 mg capsule Take 30 mg by mouth once daily. gabapentin (NEURONTIN) 100 mg capsule Take 100 mg by mouth three times daily. traMADol (ULTRAM) 50 mg tablet Take 1 tablet by mouth every 4 hours as needed for Pain. No current facility-administered medications for this visit. ALLERGIES: ALLERGIES No Known Allergies VITALS: BP 122/88 Pulse 87 Temp 36.9 ?C (98.4 ?F) Resp 20 Wt 53.7 kg (118 lb 6.4 oz) LMP 02/11/2021 SpO2 98% BMI 22.01 kg/m? PHYSICAL EXAM: GEN: mildly ill appearing HEENT: PERRL, EOMI, conjunctiva clear Ears: canals clear. TMs without erythema, bulge, or effusion Sinuses: tender frontal sinus, tender maxillary sinuses Throat: moist mucous membranes, no erythema, no exudate Neck: supple, no thyromegaly, no lymphadenopathy HEART: regular rate and rhythm, no murmurs LUNGS: clear to auscultation, no wheezes or crackles, no increased WOB ASSESSMENT/PLAN: 1. Subacute cough - ICD9: 786.2, ICD10: R05.2 (primary diagnosis) 2. Acute non-recurrent sinusitis, unspecified location - ICD9: 461.9, ICD10: J01.90 Possible secondary bacterial sinusitis. - DOXYCYCLINE MONOHYDRATE 100 MG CAPSULE Continue supportive care for post URI/bronchitic cough. Aaron Jean Baptiste MD [facility] 02-04-2022 History of Present illness Narrative Patient presents with: Cough: Chest congestion x2 weeks HPI: Coughing for 2 weeks. The symptoms began with a URI. Coworkers have had bronchitis. Positive symptoms: cough-waxing and waning, chest burning, occasional Sore throat, Sinus pressure, Nasal Congestion, Rhinorrhea, Post nasal drainage, resolved initial fever, Chills, Negative symptoms: Shortness of breath, Wheezing, Chest pain, Vomiting, Diarrhea, OTC: cough and Cold Medicine Had COVID illness in August. PAST MEDICAL HISTORY Diagnosis Date Chronic back pain Fibromyalgia Hypoglycemia, unspecified loss of conciousness mild dysplasia of cervix Ovarian cyst Renal calculi 2013 MEDICATIONS: Current Outpatient Medications Medication Sig DULoxetine (CYMBALTA) 30 mg capsule Take 30 mg by mouth once daily. gabapentin (NEURONTIN) 100 mg capsule Take 100 mg by mouth three times daily. traMADol (ULTRAM) 50 mg tablet Take 1 tablet by mouth every 4 hours as needed for Pain. No current facility-administered medications for this visit. ALLERGIES: ALLERGIES No Known Allergies VITALS: BP 122/88 Pulse 87 Temp 36.9 C (98.4 F) Resp 20 Wt 53.7 kg (118 lb 6.4 oz) [facility] 02/11/2021 SpO2 98% BMI 22.01 kg/m PHYSICAL EXAM: GEN: mildly ill appearing HEENT: PERRL, EOMI, conjunctiva clear Ears: canals clear. TMs without erythema, bulge, or effusion Sinuses: tender frontal sinus, tender maxillary sinuses Throat: moist mucous membranes, no erythema, no exudate Neck: supple, no thyromegaly, no lymphadenopathy HEART: regular rate and rhythm, no murmurs LUNGS: clear to auscultation, no wheezes or crackles, no increased WOB ASSESSMENT/PLAN: 1. Subacute cough - ICD9: 786.2, ICD10: R05.2 (primary diagnosis) 2. Acute non-recurrent sinusitis, unspecified location - ICD9: 461.9, ICD10: J01.90 Possible secondary bacterial sinusitis. - DOXYCYCLINE MONOHYDRATE 100 MG CAPSULE Continue supportive care for post URI/bronchitic cough. Aaron Jean Baptiste MD documented in this encounter [facility] 09-06-2021 Instructions Dina Washburn APRN.[facility] - 09/06/2021 2:33 PM EDT FACT SHEET FOR PATIENTS, PARENTS, AND CAREGIVERS EMERGENCY USE AUTHORIZATION (EUA) OF PAXLOVID FOR CORONAVIRUS DISEASE 2019 (COVID-19) You are being given this Fact Sheet because your healthcare provider believes it is necessary to provide you with PAXLOVID for the treatment of rbck-id-donafxfj coronavirus disease (COVID-19) caused by the SARS-CoV-2 virus. This Fact Sheet contains information to help you understand the risks and benefits of taking the PAXLOVID you have received or may receive. The [place]. Food and Drug Administration (FDA) has issued an Emergency Use Authorization (EUA) to make PAXLOVID available during the COVID-19 pandemic (for more details about an EUA please see What is an Emergency Use Authorization? at the end of this document). PAXLOVID is not an FDA-approved medicine in the [place]. Read this Fact Sheet for information about PAXLOVID. Talk to your healthcare provider about your options or if you have any questions. It is your choice to take PAXLOVID. What is COVID-19? COVID-19 is caused by a virus called a coronavirus. You can get COVID-19 through close contact with another person who has the virus. COVID-19 illnesses have ranged from very kvdh-cq-zigwuv, including illness resulting in . While information so far suggests that most COVID-19 illness is mild, serious illness can happen and may cause some of your other medical conditions to become worse. Older people and people of all ages with severe, long lasting (chronic) medical conditions like heart disease, lung disease, and diabetes, for example seem to be at higher risk of being hospitalized for COVID-19. What is PAXLOVID? PAXLOVID is an investigational medicine used to treat yggu-fo-wxemztma COVID-19 in adults and children [12 years of age and older weighing at least 88 pounds (40 kg)] with positive results of direct SARS-CoV-2 viral testing, and who are at high risk for progression to severe COVID-19, including hospitalization or . PAXLOVID is investigational because it is still being studied. There is limited information about the safety and effectiveness of using PAXLOVID to treat people with afgs-hi-ikwrvzac COVID-19. The FDA has authorized the emergency use of PAXLOVID for the treatment of mcbs-fc-pjovaheh COVID-19 in adults and children [12 years of age and older weighing at least 88 pounds (40 kg)] with a positive test for the virus that causes COVID-19, and who are at high risk for progression to severe COVID-19, including hospitalization or , under an EUA. 1 Revised: 27 April 2021 What should I tell my healthcare provider before I take PAXLOVID? Tell your healthcare provider if you: Have any allergies Have liver or kidney disease Are or plan to become Are a child Have any serious illnesses Tell your healthcare provider about all the medicines you take, including prescription and frbb-qfd-fcwodvm medicines, vitamins, and herbal supplements. Some medicines may interact with PAXLOVID and may cause serious side effects. Keep a list of your medicines to show your healthcare provider and pharmacist when you get a new medicine. You can ask your healthcare provider or pharmacist for a list of medicines that interact with PAXLOVID. Do not start taking a new medicine without telling your healthcare provider. Your healthcare provider can tell you if it is safe to take PAXLOVID with other medicines. Tell your healthcare provider if you are taking combined hormonal contraceptive. PAXLOVID may affect how your control pills work. Females who are able to become should use another effective alternative form of contraception or an additional barrier method of contraception. Talk to your healthcare provider if you have any questions about contraceptive methods that might be right for you. How do I take PAXLOVID? PAXLOVID consists of 2 medicines: nirmatrelvir and ritonavir. Take 2 pink tablets of nirmatrelvir with 1 white tablet of ritonavir by mouth 2 times each day (in the morning and in the evening) for 5 days. For each dose, take all 3 tablets at the same time. If you have kidney disease, talk to your healthcare provider. You may need a different dose. Swallow the tablets whole. Do not chew, break, or crush the tablets. Take PAXLOVID with or without food. Do not stop taking PAXLOVID without talking to your healthcare provider, even if you feel better. If you miss a dose of PAXLOVID within 8 hours of the time it is usually taken, take it as soon as you remember. If you miss a dose by more than 8 hours, skip the missed dose and take the next dose at your regular time. Do not take 2 doses of PAXLOVID at the same time. If you take too much PAXLOVID, call your healthcare provider or go to the nearest hospital emergency room right away. If you are taking a ritonavir-or cobicistat-containing medicine to treat hepatitis C or Human Immunodeficiency Virus (HIV), you should continue to take your medicine as prescribed by your healthcare provider. Talk to your healthcare provider if you do not feel better or if you feel worse after 5 days. Who should generally not take PAXLOVID? Do not take PAXLOVID if: You are allergic to nirmatrelvir, ritonavir, or any of the ingredients in PAXLOVID You are taking any of the following medicines: Alfuzosin Pethidine, propoxyphene Ranolazine Amiodarone, dronedarone, flecainide, propafenone, quinidine Colchicine Lurasidone, pimozide, clozapine Dihydroergotamine, ergotamine, methylergonovine Lovastatin, simvastatin Sildenafil (Revatio ) for pulmonary arterial hypertension (PAH) Triazolam, oral midazolam Apalutamide Carbamazepine, phenobarbital, phenytoin Rifampin Rachel s Wort (hypericum perforatum) Taking PAXLOVID with these medicines may cause serious or life-threatening side effects or affect how PAXLOVID works. These are not the only medicines that may cause serious side effects if taken with PAXLOVID. PAXLOVID may increase or decrease the levels of multiple other medicines. It is very important to tell your healthcare provider about all of the medicines you are taking because additional laboratory tests or changes in the dose of your other medicines may be necessary while you are taking PAXLOVID. Your healthcare provider may also tell you about specific symptoms to watch out for that may indicate that you need to stop or decrease the dose of some of your other medicines. What are the important possible side effects of PAXLOVID? Possible side effects of PAXLOVID are: Allergic Reactions. Allergic reactions can happen in people taking PAXLOVID, even after only 1 dose. Stop taking PAXLOVID and call your healthcare provider right away if you get any of the following symptoms of an allergic reaction: hives trouble swallowing or breathing swelling of the mouth, lips, or face throat tightness hoarseness skin rash Liver Problems. Tell your healthcare provider right away if you have any of these signs and symptoms of liver problems: loss of appetite, yellowing of your skin and the whites of eyes (jaundice), dark-colored urine, pale colored stools and itchy skin, stomach area (abdominal) pain. Resistance to HIV Medicines. If you have untreated HIV infection, PAXLOVID may lead to some HIV medicines not working as well in the future. Other possible side effects include: altered sense of taste diarrhea high blood pressure muscle aches These are not all the possible side effects of PAXLOVID. Not many people have taken PAXLOVID. Serious and unexpected side effects may happen. PAXLOVID is still being studied, so it is possible that all of the risks are not known at this time. What other treatment choices are there? Veklury (remdesivir) is FDA-approved for the treatment of trry-ax-pidoyreq COVID-19 in certain adults and children. Talk with your doctor to see if Veklury is appropriate for you. Like PAXLOVID, FDA may also allow for the emergency use of other medicines to treat people with COVID-19. Go to https://www.fda.gov/emergency-pre paredness-andresponse/mcm-legal-r llokscugx-qzw-rnergh-framework/em mrvmfqa-iie-lgedjckzqevep for information on the emergency use of other medicines that are authorized by FDA to treat people with COVID-19. Your healthcare provider may talk with you about clinical trials for which you may be eligible. It is your choice to be treated or not to be treated with PAXLOVID. Should you decide not to receive it or for your child not to receive it, it will not change your standard medical care. What if I am or ? There is leather novelty parts cutter treating women or mothers with PAXLOVID. For a mother and unborn baby, the benefit of taking PAXLOVID may be greater than the risk from the treatment. If you are , discuss your options and specific situation with your healthcare provider. It is recommended that you use effective barrier contraception or do not have sexual activity while taking PAXLOVID. If you are , discuss your options and specific situation with your healthcare provider. How do I report side effects with PAXLOVID? Contact your healthcare provider if you have any side effects that bother you or do not go away. Report side effects to FDA MedWatch at www.fda.gov/medwatch or call 3-321-AIJ2825 or you can report side effects to [facility]. at the contact information provided below. Website Fax number Telephone number [facility] How should I store PAXLOVID? Store PAXLOVID tablets at room temperature, between 68?F to 77?F (20?C to 25?C). How can I learn more about COVID-19? Ask your healthcare provider. Visit https://www.cdc.gov/COVID19. Contact your local or state public health department. What is an Emergency Use Authorization (EUA)? The [place] FDA has made PAXLOVID available under an emergency access mechanism called an Emergency Use Authorization (EUA). The EUA is supported by a Aluminum Hydroxide Process Operator of Health and Human Service (HHS) declaration that circumstances exist to justify the emergency use of drugs and biological products during the COVID-19 pandemic. PAXLOVID for the treatment of qwoc-fp-lnaeungu COVID-19 in adults and children [12 years of age and older weighing at least 88 pounds (40 kg)] with positive results of direct SARS-CoV-2 viral testing, and who are at high risk for progression to severe COVID-19, including hospitalization or , has not undergone the same type of review as an FDA-approved product. In issuing an EUA under the COVID-19 public health emergency, the FDA has determined, among other things, that based on the total amount of scientific evidence available including data from adequate and well-controlled clinical trials, if available, it is reasonable to believe that the product may be effective for diagnosing, treating, or preventing COVID-19, or a serious or life-threatening disease or condition caused by COVID-19; that the known and potential benefits of the product, when used to diagnose, treat, or prevent such disease or condition, outweigh the known and potential risks of such product; and that there are no adequate, approved, and available alternatives. All of these criteria must be met to allow for the product to be used in the treatment of patients during the COVID-19 pandemic. The EUA for PAXLOVID is in effect for the duration of the COVID-19 declaration justifying emergency use of this product, unless terminated or revoked (after which the products may no longer be used under the EUA). Additional Information For general questions, visit the website or call the telephone number provided below. Website Telephone number [email or web address] (4-498-L37-LSXG) You can also go to www.[email or web address].Medafor or call for more information. Pfizer Distributed by [facility] [place] [address] [id number] Revised: 27 April 2021 documented in this encounter [facility] 09-06-2021 History of Present illness Narrative VIRTUAL VISIT PROGRESS NOTE This is a virtual visit using [employer] video visit. It required patient-provider interaction for the medical decision making as documented below. Richard Segovia is a 35 year old female seen for COVID concerns. Today: 2 days ago at 1245 in the morning. Was cold and aching. Headache, vomiting, fever. Woke up this morning with vomiting and diarrhea at the same time. Sx get worse every day. Has tried dayquil and nyquil. Unable to eat because will cause her to vomit. Sipping on Sprite, water, Gatorade-did vomit once. Is interested in Paxlovid. Her mom is currently taking this. HISTORY REVIEWED (electronic chart updated): PAST MEDICAL HISTORY Diagnosis Date Chronic back pain Fibromyalgia Hypoglycemia, unspecified loss of conciousness mild dysplasia of cervix Ovarian cyst Renal calculi 2013 PAST SURGICAL HISTORY Procedure Laterality Date COLONOSCOPY FLX DX W/COLLJ SPEC WHEN PFRMD 02/08/15 Colonoscopy COLPOSCOPY CERVIX UPPER/ADJACENT VAGINA Colposcopy ESOPHAGOGASTRODUODENOSCOPY TRANSORAL DIAGNOSTIC 02/08/15 EGD UNSPECIFIED ORAL SURGERY PROCEDURE, BY REPORT Opened gum line FAMILY HISTORY Problem Relation Age of Onset Thyroid Mother Hypertension Father Paternal & Maternal sides Diabetes Father Heart Maternal Grandmother Social History Tobacco Use Smoking status: Never Smoker Smokeless tobacco: Never Used Vaping Use Vaping Use: Never used Substance Use Topics Alcohol use: Yes Comment: ocassionally Drug use: No Current Outpatient Medications Medication Sig norethindrone (AYGESTIN) 5 mg tablet Take 1 tablet TID until bleeding stops, the BID x 3 days, the daily x 3 days. ondansetron orally disintegrating (ZOFRAN ODT) 4 mg disintegrating tablet Take 1 tablet by mouth every 8 hours as needed. acetaminophen (TYLENOL) 325 mg tablet Take 2 tablets by mouth every 6 hours as needed for Pain (headache). gabapentin (NEURONTIN) 100 mg capsule Take 100 mg by mouth three times daily. traMADol (ULTRAM) 50 mg tablet Take 1 tablet by mouth every 4 hours as needed for Pain. No current facility-administered medications for this visit. ALLERGIES No Known Allergies REVIEW OF SYSTEMS: All other ROS: negative As noted in HPI PHYSICAL EXAMINATION: VIDEO EXAM: (if completed, performed via video enabled technology) GENERAL: alert and appropriate, in no distress, well-hydrated, well nourished and appears tired ASSESSMENT: (U07.1) COVID-19 (primary encounter diagnosis) PLAN: Supportive care-rest, fluids, acetaminophen/ibuprofen, Mucinex if necessary. Begin Paxlovid tx. Dina Washburn APRN.SABINA Nirmatrelvir/Ritonavir (Paxlovid) Eligibility and Patient Discussion [facility] Formulary Restriction Criteria: Adult outpatients 18 years and older with ALL of the following: [x] Patient has positive SARS-COV-2 viral test (PCR or antigen test) during current illness [x] Patient has symptoms for 5 days or less [x] Not requiring hospitalization at any time for management of COVID-19 [x] Not requiring supplemental oxygen or a change in baseline supplemental oxygen[x] Not utilized for pre-exposure or post-exposure prophylaxis for prevention of COVID-19 [x] Patient does not have severe renal impairment (eGFR < 30 mL/min) or severe hepatic impairment (Child-Busby Class C) [x] Meeting at least one of the criteria for high risk of progression to severe COVID-19: [] Age over 65 years [] Cancer [x] Chronic kidney disease [] Chronic liver disease [] Chronic lung diseases, including cystic fibrosis [] Dementia or other neurological conditions [] Diabetes (type 1 or type 2) [] Disabilities, including Down syndrome and neurodevelopmental disorders [] Heart conditions [] HIV infection [] Immunocompromised state [] Mental health conditions [] Medical related technological dependence (tracheostomy, gastrostomy, or positive pressure ventilation (not related to COVID) [] Overweight and obesity (BMI greater or equal to 25 for adults) [] Physical inactivity [] [] Sickle cell disease or thalassemia [] Smoking, current or former [] Solid organ or blood stem cell transplant [] Stroke or cerebrovascular disease [] Substance use disorders [] Tuberculosis [] People from racial and ethnic minority groups Criteria above are met: Yes Date of Positive Test: 09/03/2021 Date of Symptom Onset: 09/03/2021 Patient received COVID vaccine: No Drug-Drug interactions reviewed: Yes. No drug interactions were identified. I have discussed the use of the investigational therapeutic, nirmatrelvir/ritonavir, for the treatment of mild to moderate COVID-19 and its use under Emergency Use Authorization with the patient. The patient was informed that nirmatrelvir/ritonavir is not an FDA approved drug and that it is authorized for use under this Emergency Use Authorization. The patient was also informed of the significant known benefits and potential risks of nirmatrelvir/ritonavir, and the extent to which such potential risks and benefits are unknown. The patient was informed that there is mandatory reporting of all medication errors and serious adverse events potentially related to nirmatrelvir/ritonavir treatment within 7 calendar days from the onset of the event and that events up to 28 days after completion of therapy need to be reported. The discussion included alternatives to receiving nirmatrelvir/ritonavir, including clinical trials, and potential the risks and benefits of those alternatives. The patient was provided electronically with the Fact Sheet for Patients, Parents and Caregivers . The patient was also instructed that in addition to the treatment with nirmatrelvir/ritonavir, he/she should continue to self-isolate and use infection control measures (e.g., wear mask, isolate, social distance, avoid sharing personal items, clean and disinfect high touch surfaces, and frequent handwashing) according to CDC guidelines. The patient stated understanding and gave verbal consent to proceeding with nirmatrelvir/ritonavir treatment. Dina Washburn APRN.CNP September 06, 2021 2:16 PM documented in this encounter [facility] 09-06-2021 Miscellaneous Notes Faxed covid + results to [employer]- attn: Kimberlee. . Scheduled same day VV with Postal Inspector. Ok to send, needs vv with one of us or [facility] for consideration of meds. Since experimental, we need to go over details and even see if she is eligible to receive. Not everyone is. Patient calling she came in 09/04 tested, COVID positive, was not seen in the [facility] care only tested. Patient now asking for Paxlovid rx. Patient was told by her mother [facility] only one that has Paxlovid right now, mother had got rx yesterday by her Dr. Patient said her symptoms began 09/04 headache, vomiting, diarrhea, fever, coughing. She had taken dayquil/nyquil but stopped it. Patient asking for copy of her COVID test results be faxed to her employer [employer]. she will have to call back with fax number. Please advise documented in this encounter [facility] 09-04-2021 Miscellaneous Notes Reason for call: patient was exposed to COVID 4 days ago and developed chills, headache, fever, and vomiting 1 day ago. Outcome for call: call PCP now, per COVID miguelk ordered a COVID test for the patient and patient will follow up with PCP Reason for Disposition HIGH RISK for severe COVID complications (e.g., weak immune system, age > 64 years, obesity with BMI > 25, , chronic lung disease or other chronic medical condition) (Exception: Already seen by PCP and no new or worsening symptoms.) Answer Assessment - Initial Assessment Questions 1. COVID-19 DIAGNOSIS: Denies 2. COVID-19 EXPOSURE: 4 days ago 3. ONSET: 1 day ago 4. WORST SYMPTOM: headache and vomitting 5. COUGH: productive, mucous with red mixed in with it 6. FEVER: 101.0 7. RESPIRATORY STATUS: denies 8. QLRGLG-TNRJ-HBSUZ: worse 9. HIGH RISK DISEASE:denies 10. VACCINE: denies 11. BOOSTER:denies 12. : denies 13. OTHER SYMPTOMS: headache, fever, chills, vomit, body aches 14. O2 SATURATION MONITOR:denies Tylenol with some relief Protocols used: CORONAVIRUS (COVID-19) DIAGNOSED OR ACEMQIILH-HYHOS-IM documented in this encounter [facility] documented as of this encounter (statuses as of 09/04/2021) [facility] History of Past illness Narrative* Problem Noted Date Resolved Date Abdominal pain, RUQ 02/08/2015 02/08/2015 Orthostatic hypotension 10/29/2010 05/09/19 12 Unspecified enthesopathy 05/13/2005 012 documented as of this encounter (statuses as of 09/06/2021) [facility] History of Past illness Narrative* Problem Noted Date Resolved Date Abdominal pain, RUQ 02/08/2015 02/08/2015 Orthostatic hypotension 10/29/2010 05/09/19 12 Unspecified enthesopathy 05/13/2005 012 documented as of this encounter (statuses as of 09/06/2021) [facility] History of Past illness Narrative* Problem Noted Date Resolved Date Abdominal pain, RUQ 02/08/2015 02/08/2015 Orthostatic hypotension 10/29/2010 05/09/19 12 Unspecified enthesopathy 05/13/2005 012 documented as of this encounter (statuses as of 02/09/2022) [facility] History of Past illness Narrative* Problem Noted Date Resolved Date Abdominal pain, RUQ 02/08/2015 02/08/2015 Orthostatic hypotension 10/29/2010 05/09/19 12 Unspecified enthesopathy 05/13/2005 012 documented as of this encounter (statuses as of 02/15/2022) [facility] History of Past illness Narrative* Problem Noted Date Diagnosed Date Resolved Date Abdominal pain, RUQ 02/08/2015 02/09/20 15 Orthostatic hypotension 10/29/201004/11 Unspecified enthesopathy 05/13/2005 documented as of this encounter (statuses as of 01/15/2023) [facility] Diagnosis Suspected COVID-19 virus infection- Primary [facility] COVID-19- Primary [facility] Diagnosis Subacute cough- Primary Cough Acute non-recurrent sinusitis, unspecified location documented in this encounter [facility] note* Diagnosis Subacute cough Cough Acute non-recurrent sinusitis, unspecified location documented in this encounter [facility] note* Diagnosis Right wrist pain- Primary Pain in joint, forearm [facility] No data available for this section [facility] Discharge instructions No data available for this section [facility] Progress note No data available for this section [facility] Reason for referral (narrative)* Diagnostic Procedure Only (Urgent) - Pending Review Specialty Diagnoses / Procedures Referred By Susan sam Referred To Contact XR IMAGING Diagnoses Right wrist pain Procedures XR WRIST GENERAL 3V PA/LAT/OBL RIGHT RADEX WRIST COMPLETE MINIMUM 3 VIEWS Bienvenido Williamson APRN.CNP [address] [place] [address] [place] [address] Referral ID Status Reason Start Date Expiration Date Visits Requested Visits Authorized [id number] Pending Review Auto-Generat ed Referral 01/15/2023 02/14/2024 1 1 [facility] Summary Purpose Family History No Family History Records FoundNo Family History Records Found No data available for this section No Family History Records Found Advance Directives No Advanced Directives Records FoundNo Advanced Directives Records FoundNo Advanced Directives Records Found Health Concerns Infection Onset Date Last Indicated Resolved Time COVID-19 Confirmed 09/04/2021 09/04/2021 Additional Source Comments INFORMATION SOURCE (unrecogn ized section and content) DATE CREATED AUTHOR AUTHOR'S ORGANIZ ATION 10/09/2022 [facility] ([place]) DATE CREATED AUTHOR AUTHOR'S ORGANIZ ATION 01/17/2023 [facility] Source Comments (unrecognize d section and content) In the event this informatio n is protected by the Federal Confidentiality of Alcohol and Drug Abuse Patient Records regulations: The Federal rules restrict any use of the information to criminally investigate or prosecute any alcohol or drug abuse patient.[facility] the event this information is protected by the Federal Confidentiality of Alcohol and Drug Abuse Patient Records regulations: The Federal rules restrict any use of the information to criminally investigate or prosecute any alcohol or drug abuse patient.[facility] the event this information is protected by the Federal Confidentiality of Alcohol and Drug Abuse Patient Records regulations: The Federal rules restrict any use of the information to criminally investigate or prosecute any alcohol or drug abuse patient.[facility] the event this information is protected by the Federal Confidentiality of Alcohol and Drug Abuse Patient Records regulations: The Federal rules restrict any use of the information to criminally investigate or prosecute any alcohol or drug abuse patient.[facility] the event this information is protected by the Federal Confidentiality of Alcohol and Drug Abuse Patient Records regulations: The Federal rules restrict any use of the information to criminally investigate or prosecute any alcohol or drug abuse patient.[facility] the event this information is protected by the Federal Confidentiality of Alcohol and Drug Abuse Patient Records regulations: The Federal rules restrict any use of the information to criminally investigate or prosecute any alcohol or drug abuse patient.[facility] Reason for Visit (unrecogniz ed section and content) Reason Comments Medication Request Reason Comments Cough Chest congestion x2 weeks Reason Onset Date Comments Refill Request 02/14/2022 Reason Comments Pain Right wrist pain, mo ving up arm x 1 day Care Teams (unrecognized sec tion and content) [employer] Installer Relationship Specialty Start Date End Date Carlos Alberto Troncoso PA-C [address] [place] [address] PCP - General Family Practice 12/30/16 Deysi Harvey INDUSTRIAL TECHNOLOGY EDUCATION TEACHER 09/14/10 [employer] Installer Relationship Specialty Start Date End Date Carlos Alberto Troncoso PA-C [address] [place], [place] [id number] PCP - General Family Practice 12/30/16 Deysi Harvey INDUSTRIAL TECHNOLOGY EDUCATION TEACHER 09/14/10 [employer] Installer Relationship Specialty Start Date End Date Carlos Alberto Troncoso PA-C [address] [place], [place] [phone] PCP - General Family Medicine 12/30/16 Deysi Harvey INDUSTRIAL TECHNOLOGY EDUCATION TEACHER 09/14/10 [employer] Installer Relationship Specialty Start Date End Date Carlos Alberto Troncoso PA-C [address] [place], [place] [phone] PCP - General Family Medicine 12/30/16 Deysi Harvey INDUSTRIAL TECHNOLOGY EDUCATION TEACHER 09/14/10 [employer] Installer Relationship Specialty Start Date End Date Neo Bach, SR. PAYROLL MANAGER [address] [place] [id number] PCP - General Family Medicine 01/15/23 Deysi Harvey INDUSTRIAL TECHNOLOGY EDUCATION TEACHER 09/14/10 FOR RECORDS PERTAINING TO PATIENTS WHO ARE OR HAVE BEEN ENROLLED IN A CHEMICAL DEPENDENCY/SUBSTANCEABUSE PROGRAM, SOME INFORMATION MAY BE OMITTED. This clinical summary was aggregated from multiple sources. Caution should be exercised in using it in the provision of clinical care. This summary normalizes information from multiple sources, and as a consequence, information in this document may materially change the coding, format and clinical context of patient data. In addition, data may be omitted in some cases. CLINICAL DECISIONS SHOULD BE BASED ON THE PRIMARY CLINICAL RECORDS. [facility] [place] [facility] Records [facility]. provides no warranty or guarantee of the accuracy or completeness of information in this document.
== END | disposition home or self-care (01) ==
PROVIDERS: PCP Nurse Practitioner Family; Referring Provider Nurse Practitioner Women's Health; Visit Provider Nurse Practitioner Women's Health
DX: N93.9 Abnormal uterine and vaginal bleeding, unspecified (principal)
CPT/HCPCS: 36415; 84144; 85025

== ENCOUNTER → 2023-05-12 | Outpatient (CLI) | payer BC, SELFPAY ==
[2023-05-12 18:46] LABS: Amphetamine Urine VISTA NEGATIVE (<1000 ng/mL); Barbiturate Urine VISTA NEGATIVE (< 200 ng/mL); Benzodiazepine Urine VISTA NEGATIVE (< 200 ng/mL); Cocaine Urine VISTA NEGATIVE (< 300 ng/mL); Ecstacy Urine VISTA NEGATIVE (< 500 ng/mL); Methadone Urine VISTA NEGATIVE (< 300 ng/mL); PCP Urine VISTA NEGATIVE (< 25 ng/mL); THC Urine VISTA NEGATIVE (< 50 ng/mL); Vista UDS pH Range 6
== END | disposition home or self-care (01) ==
PROVIDERS: PCP Nurse Practitioner Family; Referring Provider Anesthesiology Pain Medicine; Visit Provider Anesthesiology Pain Medicine
DX: F11.20 Opioid dependence, uncomplicated (principal)
CPT/HCPCS: 80307

== ENCOUNTER → 2024-06-09 | Outpatient (CLI) | payer BC, SELFPAY ==
[2024-06-09 20:05] LABS: Amphetamine Urine NEGATIVE (<1000 ng/mL); Barbiturate Urine NEGATIVE (< 200 ng/mL); Benzodiazepine Urine NEGATIVE (< 200 ng/mL); Buprenorphine Urine NEGATIVE (< 200 ng/mL); Cocaine Urine NEGATIVE (< 300 ng/mL); Fentanyl, Urine NEGATIVE; Methadone Urine NEGATIVE (< 300 ng/mL); Opiates Urine NEGATIVE (< 300 ng/mL); Oxycodone, Urine NEGATIVE (< 100 ng/mL); PCP Urine NEGATIVE (< 25 ng/mL); THC Urine NEGATIVE (< 50 ng/mL)
== END | disposition home or self-care (01) ==
LOC: LAB 16:36
PROVIDERS: PCP Nurse Practitioner Family; Referring Provider Anesthesiology Pain Medicine; Visit Provider Anesthesiology Pain Medicine
DX: F11.20 Opioid dependence, uncomplicated (principal)
CPT/HCPCS: 80307

== ENCOUNTER → 2024-07-08 | Outpatient (CLI) | payer BC, SELFPAY ==
[2024-07-13 11:08] LABS: HPV APTIMA, High Risk Negative (Negative)
== END | disposition home or self-care (01) ==
LOC: LABSPEC 16:21
PROVIDERS: PCP Nurse Practitioner Family; Referring Provider Advanced Practice Midwife; Visit Provider Advanced Practice Midwife
DX: Z12.4 Encounter for screening for malignant neoplasm of cervix (principal); N93.9 Abnormal uterine and vaginal bleeding, unspecified; N89.8 Other specified noninflammatory disorders of vagina
CPT/HCPCS: 87070; 87205; 87624; 88175; G0145

== ENCOUNTER → 2024-07-12 | Outpatient (CLI) | payer BC, SELFPAY ==
--- NOTE | 2024-07-12 16:04 | US_ITS ---
PROCEDURE: TRANSVAGINAL NON- 07/12/2024 REASON FOR EXAM: ABNORMAL UTERINE BLEEDING TECHNIQUE: Transvaginal pelvic ultrasound. Color and spectral doppler analysis of the ovaries. COMPARISON: None. FINDINGS: Measurements: Uterus: 8.5 x 4.3 x 5.4 cm with a volume of 102.5 mL Endometrial Thickness: 0.8 cm Right Ovary: 3.5 x 1.6 x 1.9 cm for volume of 5.5 mL. Left Ovary: 1.6 x 1.2 x 1.2 cm for volume of 1.2 mL. Uterus: Anteverted. Normal contour and myometrial echotexture. Endometrium: There is heterogeneous avascular material distending the endometrial cavity, both near the fundus where it measures 1.1 cm in thickness, as well as in the lower uterine segment. Right ovary: Normal size and echotexture. Left ovary: Normal size and echotexture. Other adnexal findings: There is a paraovarian cyst measuring 1.1 cm.. Cul-de-sac: No free intraperitoneal fluid identified. DOPPLER: Color Doppler: Normal color flow doppler signal at both ovaries. Spectral Doppler: Normal arterial inflow and venous outflow signal at both ovaries. US/Transvaginal Non- IMPRESSION: Heterogeneous avascular material within the endometrial cavity, measuring 1.1 c m in thickness near the fundus. Findings are nonspecific and may represent blood products, though polyp or endometrial hyper plasia could appear similar. Recommend repeat ultrasound in 4-6 weeks, and referral to FOOD AND NUTRITION PROFESSOR if not already performed for consideration of biopsy. Reading Location: [facility]
== END | disposition home or self-care (01) ==
LOC: OPUS 16:03
PROVIDERS: PCP Nurse Practitioner Family; Referring Provider Advanced Practice Midwife; Visit Provider Advanced Practice Midwife
DX: N93.9 Abnormal uterine and vaginal bleeding, unspecified (principal)
CPT/HCPCS: 76830

== ENCOUNTER 2024-09-24 16:22 | Outpatient (CLI) | payer BC, SELFPAY ==
--- NOTE | 2024-09-24 15:30 | EMB_PTH ---
PATIENT: RICHARD GU LOC: [facility] U#:[id number] AGE/SX: 38/F ROOM: RE09/24/[address]: Dr. Kristi Howard DO : 1985 BED: DIS: 09/24/2024 SPEC #: [id number] RECD: 09/24/24 16:38 STATUS: DOMINICK JOB #: [id number] JORGE: 09/24/24 15:[address]: Kristi Howard DEPT: SURGICAL PATHOLOGY RECD BY: Rl Lopez ENTERED: 09/27/24 09:01 SP TYPE: ENDOM BX/C MIS DR: Neo Bach, CADEN-C Tissues: A - Endometrium, NOS Procedures: Surgery Specimen Level IV HEADER OPERATION: Endometrial biopsy PRE-OP DIAGNOSIS: Abnormal uterine bleeding TISSUE SUBMITTED: A- Endometrial lining MICROSCOPIC DIAGNOSIS A. Endometrium, biopsy: - Inactive endometrium with progestin effect. MICROSCOPIC DESCRIPTION Slides are reviewed. GROSS DESCRIPTION A. Received in formalin labeled with the patient's name and date of is a 1.7 x 0.7 x 0.1 cm aggregate of singh to light brown tissue fragments. Entirely submitted in 1 cassette. [place] 09/27/2024 CPT:34991
== END 2024-09-24 23:59 | disposition home or self-care (01) ==
LOC: LABSPEC 16:23
PROVIDERS: PCP Nurse Practitioner Family; Visit Provider Obstetrics & Gynecology
DX: N93.9 Abnormal uterine and vaginal bleeding, unspecified (principal)
CPT/HCPCS: 88305

== ENCOUNTER → 2024-10-04 | Outpatient (CLI) | payer BC, SELFPAY ==
[2024-10-04 22:22] LABS: Barbiturate Urine NEGATIVE (< 200 ng/mL); Benzodiazepine Urine NEGATIVE (< 200 ng/mL); PCP Urine NEGATIVE (< 25 ng/mL); THC Urine NEGATIVE (< 50 ng/mL)
== END | disposition home or self-care (01) ==
LOC: LAB 16:23
PROVIDERS: PCP Nurse Practitioner Family; Referring Provider Anesthesiology Pain Medicine; Visit Provider Anesthesiology Pain Medicine
DX: F11.20 Opioid dependence, uncomplicated (principal)
CPT/HCPCS: 80307

== ENCOUNTER 2024-10-05 08:49 | Day surgery (SDC) | payer BC, SELFPAY ==
[2024-09-24 17:06] LABS: Hematocrit 39.1 % (37-47); Hemoglobin 12.4 g/dL (12.0-15.0); Mean Corp Hgb Conc 31.7 g/dL (32-36); Mean Corpuscular Volume 82.7 fL (81-99); Mean Platelet Vol. 9.2 fl (6.2-12.0); Platelet Count 382 K/mm3 (150-450); RBC Distribution Width CV 16.2 % (11.6-14.6); RBC Distribution Width SD 48.7 fl (35.1-43.9); Red Blood Count 4.73 M/mm3 (4.2-5.4); White Blood Count 7.2 K/mm3 (4.4-11.0)
[2024-09-24 17:13] LABS: Magnesium 2.6 mg/dL (1.5-2.2)
[2024-10-05] VITALS (15 sets, daily range): BP systolic 108–139; BP diastolic 63–96; PULSE 64–102; RESP 16–146; TEMP 36.1–37.5; O2SAT 97–100; BMI 21.4
--- NOTE | 2024-10-05 08:58 | HP.PCM_ITS ---
History and Physical Date of Admission: 10/05/24 Intake Vital Signs 08/02/2513:28 09/24/2514:08 09/24/2514:10 Height 5 ft 3 in 5 ft 3 in 5 ft 3 in Weight: 123 lb 7 oz BMI 21.9 BP 136/81 H Intake Visit Reasons: EMB/preop Saw Repairer Required: No Is patient in pain?: No Allergies No Known Allergies Allergy (Verified 09/24/24 15:08) Medications ?Medication ?Instructions ?Recorded ?Confirmed ?Type tramadol 50 mg tablet 50 mg PO BID 04/21/17 09/24/24 History gabapentin 300 mg capsule 300 mg PO BID 07/08/24 09/24/24 History norethindrone acetate 5 mg tablet 5 mg PO QDAY #45 tabs 08/18/24 09/24/24 Rx acetaminophen 500 mg capsule 500 mg PO Q6H PRN pain 09/21/24 09/24/24 History cyanocobalamin (vitamin B-12) 1,000 mcg PO DAILY 09/21/24 09/24/24 His tory 1,000 mcg tablet (Vitamin B-12) Post menopausal: No Patient : No : No PFSH PFSH Medical History Wears glasses Kidney stones Back pain Migraine headache History of IBS Gastric reflux Non-smoker Leg cramps History of pain when walking Fibromyalgia Surgical History History of colposcopy S/P tooth extraction Family History Other Infertility Social History household members: spouse current occupational status: employed current occupation: [employer] Smoking Status: Never smoker alcohol intake: current alcohol intake frequency: a few times a month substance use type: does not use seatbelt use: always additional social history: : Vishnu HPI EMB/preop Details: HPI surg consult per KW Details: RICHARD GU is a 38 year old who G0 presents for surgery for treatment of heavy periods and finding of possible uterine polyp. She bleeds for about 3 weeks at a time, one week off, and then restarts. Aygestin is working but she would like definitive treatment with hysterectomy. She and her had several years of unprotected sex without being able to successfully conceive. Egg quality testing showed fair quality . She and her have decided to abandon the idea of conception. She states that she would rather enjoy a better quality of life and not miss out on opportunities with her family related to her pelvic pain and menses. EMB was benign. Ultrasound shows the following: FINDINGS: Measurements: Uterus: 8.5 x 4.3 x 5.4 cm with a volume of 102.5 mL Endometrial Thickness: 0.8 cm Right Ovary: 3.5 x 1.6 x 1.9 cm for volume of 5.5 mL. Left Ovary: 1.6 x 1.2 x 1.2 cm for volume of 1.2 mL. Uterus: Anteverted. Normal contour and myometrial echotexture. Endometrium: There is heterogeneous avascular material distending the endometrial cavity, both near the fundus where it measures 1.1 cm in thickness, as well as in the lower uterine segment. Right ovary: Normal size and echotexture. Left ovary: Normal size and echotexture. Other adnexal findings: There is a paraovarian cyst measuring 1.1 cm.. Cul-de-sac: No free intraperitoneal fluid identified. DOPPLER: Color Doppler: Normal color flow doppler signal at both ovaries. Spectral Doppler: Normal arterial inflow and venous outflow signal at both ovaries. US/Transvaginal Non- IMPRESSION: Heterogeneous avascular material within the endometrial cavity, measuring 1.1 cm in thickness near the fundus. Findings are nonspecific and may represent blood products, though polyp or endometrial hyperplasia could appear similar. ROS Const ROS Unobtainable: All systems reviewed & are unremarkable except as noted in H Resp Resp: Reports system reviewed and no additional complaints, except as documented; Denies cough GI GI: Reports as per HPI Psych Psych: Reports system reviewed and no additional complaints, except as documented Exam Const General: cooperative, healthy appearing, comfortable and no acute distress Resp Effort & Inspection: normal respiratory effort General: bimanual renal exam normal bilaterally External Female Exam: normal appearance of the urethra Urethra: normal appearance of the urethra Speculum Exam - Vagina: normal appearance of the vagina Speculum Exam - Cervix: normal appearance of the cervix Bimanual Exam- Adnexa, other: normal adnexae and normal Pelvic Support: normal Skin General: no rashes or lesions noted Psych Appearance: grossly normal Speech and Movement: speech and movement normal Results POC Urine Office , Urine Negative Last Edit by Breana Vanegas on 09/24/24 16:00 Coding Level of Care Code Off vis,est,level 4 Diagnoses Abnormal uterine bleeding (AUB) N93.9 Fibromyalgia M79.7 Endometrial polyp N84.0 CPT Codes Endometrial Biopsy (35416) Assessment and Plan Assessment and Plan (1) Abnormal uterine bleeding (AUB): Status: Acute Comment: cbc, aygestin (2) Fibromyalgia: Status: Acute (3) Endometrial polyp: Status: Acute Orders: Orders Endometrial Biopsy 09/24/24 N93.9 - Abnormal uterine and vaginal bleeding, unspecified POC Urine 09/24/24 N91.2 - Amenorrhea, unspecified Plan After discussing the patient's diagnosis and treatment plan options, patient wishes to proceed with surgical management. I have discussed with the patient the risks, benefits, and alternatives of the procedure which include but are not limited to risks of anesthesia, bleeding, infection, possible damage to bowel, bladder, or surrounding vasculature which could lead to additional surgery to evaluate any complications. Patient agrees to procedure and wishes to proceed. ACOG/uptodate references given for additional information regarding procedure. plan is for a robotic hysterectomy, bs cysto
--- NOTE | 2024-10-05 08:59 | DCINST_ITS ---
Discharge Instructions DC O2, CPAP, BIPAP needs Home O2 Discharge instructions: No Dressing / Incision Discharge Activity: May Shower May resume sexual activity in: 8 weeks Weight Bearing Status: Full weight bearing Lifting Restrictions: 10 pounds for 2 weeks Dressing / Incision Call your doctor if your incision/area has: Continuous Slow Oozing, Sudden I ncreased Bleeding, Increased Pain/ Swelling, Increased Redness and Foul Smelling Discharge Call your doctor if you observe: Fever of 101 or Higher, Using more than 1 pad per hour, Shortness of breath, Chest pain and Uncontrolled pain Suture Line Care: Avoid Pulling/Pushing and Avoid Pinching/Bending Remove Dressing in: 1 week (if present) Cleanse incision/area with: Soap & Water and Keep Dressing Clean & Dry Follow Up Care Please Follow Up With: Kristi Howard DO When: Call to make an appointment with your doctor for a postop visit in 2 and 6 weeks Test Results: Test results from this visit will be discussed in further detail at your follow- up appointment, if applicable. Discharge Plan Admission Primary Reason for Your Visit: hysterectomy Attending Provider: Kristi Howard Primary Care Provider: Neo Bach NP Instructions Print Language: Yi Discharge Orders/Prescriptions Prescriptions: New oxycodone-acetaminophen [Percocet] 5-325 mg tablet 1 tab PO Q4H PRN (Reason: pain) 7 Days Qty: 30 0RF Continued gabapentin 300 mg capsule 300 mg PO BID tramadol 50 MG tablet 50 mg PO BID cyanocobalamin (vitamin B-12) [Vitamin B-12] 1,000 mcg tablet 1,000 mcg PO DAILY Discontinued acetaminophen 500 mg capsule 500 mg PO Q6H PRN (Reason: pain) norethindrone acetate 5 mg tablet 5 mg PO QDAY Qty: 45 2RF Rx Instructions: start with 3 pills a day for 1 day, then 2 pills a day for 1 day, then one pill a day Referrals / Follow Up: Neo Bach NP, ADMINISTRATION VICE PRESIDENT-C [Primary Care Provider] - Disposition Disposition (needs filled in before D/C Order can be placed): Home, Self Care
[2024-10-05] MEDS: Lactated Ringers 1,000 ML 40 ML IV (09:22)
[2024-10-05] MEDS: Magnesium 1 GM over 15 mins IV (09:22)
[2024-10-05 09:24] LABS: Internal QC Validated? YES +Cl - CLEAR BKGD; Pregnancy, Urine Negative Negative; Record Kit Lot#,Urine Preg 0000962302
[2024-10-05] MEDS: Scopolamine 1mg/72hr Patch 1 PATCH TD (09:39)
--- NOTE | 2024-10-05 09:53 | PCM.PRE.AN2 ---
ASA Classification* ASA Classification ASA Classification: 2 Assessment & Plan Anesthesia* Anesthesia Assessment Anesthesia Assessment: Discussed sedation and/or anesthesia options, risks, benefits, and alternatives with patient/parents/legal guardian/POA. Questions invited. The patient/parents/legal guardian/POA seems to understand and agrees to proceed with anesthesia plan. Reviewed the physical assessment, medical history, allergy history and patient home medications list prior to surgery/procedure/anesthetic and documented any changes. Performed airway and anesthesia risk assessments. Anesthesia Type Anesthesia Type: General History Source History Obtained from:: Patient and Chart Anesthesia Focused Assessment* Temperature: 98.8 F Pulse Rate: 92 Blood Pressure: 139/96 Respiratory Rate: 18 Pulse Ox: 100 Oxygen Delivery Method: Room Air Airway Assessment Mouth opens: >3 cm Mallampati Score: III Teeth Condition: Missing (Patient is missing a couple teeth. Rest of the teeth are tight.) Neck Range of motion (ROM): Limited ROM (Slight Decrease) Labs Anesthesia Preop lab: CBC WBC 7.2 K/mm3 (4.4-11.0) 09/24/24 16:10 09/24/24 RBC 4.73 M/mm3 (4.2-5.4) 09/24/24 16:10 09/24/24 Hgb 12.4 g/dL (12.0-15.0) 09/24/24 16:10 09/24/24 Hct 39.1 % (37-47) 09/24/24 16:10 09/24/24 Plt Count 382 K/mm3 (150-450) 09/24/24 16:10 09/24/24 CHEMISTRY Potassium 4.0 mmol/L (3.5-5.1) 10/07/19 13:20 10/07/19 Sodium 138 mmol/L (136-145) 10/07/19 13:20 10/07/19 Magnesium 2.6 mg/dL (1.5-2.2) H 09/24/24 16:10 09/24/24 BUN 10 mg/dL (7-18) 10/07/19 13:20 10/07/19 Creatinine 0.87 mg/dL (0.55-1.02) 10/07/19 13:20 10/07/19 Glucose 85 mg/dL (74-106) 10/07/19 13:20 10/07/19 TSH 0.64 uIU/mL (0.358-3.74) 08/16/22 16:22 08/16/22 COAG Urine Test Negative Negative 10/05/24 09:05 10/05/24 Tst Clinic Negative 09/24/24 16:00 09/24/24 Pre-Assessment Diagnosis/Proposed Procedure Planned Operative Procedure(s): Lap Robotic Total Hysterectomy Joe Salping, cystoscopy Anesthesia History Anesthesia History - profile mill operator tape control: Anesthesia History - profile mill operator tape control Hx Hospitalization No 09/21/24 08:13 Any Problems With Anesthesia No 09/21/24 08:13 Cholinesterase deficiency No 09/21/24 08:13 You/Your Family Experience No 09/21/24 08:13 fever (hyperthermia) with Relationship Recent Exposure to Contagious No 10/05/24 09:30 Disease Does patient have nerve No 09/21/24 08:13 stimulator Patient instructed to have device shut off --Does patient have Pacemaker No 10/05/24 09:30 or ICD? When Was Last Pacemaker Check QUESTION #4 FULL TEXT: You/Your Family Experience fever (hyperthermia) with Anesthesia Last Oral Intake Last Oral intake: Last Oral Intake NPO since 07:00 10/05/24 09:30 Meds taken in AM with sips of water? Meds patient instructed to take am of surgery Any additional information?: Yes NPO since: 07:00 (Patient had preop Ensure at 7 AM.) PONV PONV - profile mill operator tape control: PONV - profile mill operator tape control Female Yes 09/21/24 08:13 HX of Motion Sickness No 09/21/24 08:13 HX of N/V After Surgery No 09/21/24 08:13 Non-Smoker Yes 09/21/24 08:13 Duration of Surgery greater Yes 09/21/24 08:13 than 60 minutes Number of Risk Factors 3 09/21/24 08:13 PONV Score Moderate Risk 09/21/24 08:13 Height & Weight Height & Weight: Anesthesia: Height & Weight Height 5 ft 3 in 10/05/24 09:30 Weight: 55 kg 10/05/24 09:30 Body Mass Index (BMI) 21.4 10/05/24 09:30 Respiratory Assessment Respiratory Assessment - profile mill operator tape control: Respiratory Tract Infection Hx - profile mill operator tape control Hx Respiratory Tract Infection No 09/21/24 08:13 STOP Sleep Apnea STOP Sleep Apnea - profile mill operator tape control: STOP Sleep Apnea - profile mill operator tape control Hx Hypertension No 09/21/24 08:13 Hx Sleep Apnea No 09/21/24 08:13 CPAP No 09/21/24 08:13 BIPAP No 09/21/24 08:13 Do you snore loudly (louder Yes 09/21/24 08:13 than talking or can be heard Do you often feel tired/ No 09/21/24 08:13 fatigued/ sleepy during daytime? Has anyone observed you stop Yes 09/21/24 08:13 breathing during sleep? STOP Results Positive 09/21/24 08:13 QUESTION #5 FULL TEXT : Do you snore loudly (louder than talking or can be heard through closed doors)? Tobacco Use History Tobacco Use History - profile mill operator tape control: Tobacco Use History - profile mill operator tape control Tobacco Use Smoking Status Never smoker 09/21/24 08:13 Hx Tobacco Use No 09/21/24 08:13 Years Smoking Packs Smoked per Day Smoking Cessation Date was within the last 15 years Hx Smoking Cessation Date Hx Smoking Cessation Counseling Hematologic Medial History Hematologic Hx - profile mill operator tape control: Hematologic Medical Hx - automatic clipper and stripper Hx of Blood Transfusion No 09/21/24 08:13 Hx of Transfusion in last 3 No 09/21/24 08:13 Months Date of Last Transfusion (if within last 3 months) Ever experience any problems No 09/21/24 08:13 with transfusion(s)? Specify any problems Hx of Preganancy in last 3 No 09/21/24 08:13 Months Nurse Filling Out Transfusion VCHRISTIN 09/21/24 08:13 & Questions: Date: 09/21/24 09/21/24 08:13 Time: 08:14 09/21/24 08:13 Patient unable to answer at this time (ie. confused, unrespo /Reproduction History /Reproductive History - profile mill operator tape control: /Reproductive Hx- profile mill operator tape control Hx Now Gestational Age (in weeks): EDC: Hx Hx Para Hx Section SAB No 09/24/24 15:10 Active Medications Active Medications: Current Medications Generic Name Dose Route Start Last Admin Trade Name Freq PRN Reason Stop Dose Admin Acetaminophen 1,000 mg 10/05/24 11:50 10/05/24 09:38 Acetaminophen 500 Mg Tablet PO 10/05/24 11:51 1,000 mg PREOP ONE Administration Celecoxib 400 mg 10/05/24 11:50 10/05/24 09:40 Celecoxib 200 Mg Capsule PO 10/05/24 11:51 400 mg PREOP ONE Administration Gabapentin 600 mg 10/05/24 11:50 10/05/24 09:39 Gabapentin 600 Mg Tablet PO 10/05/24 11:51 600 mg PREOP ONE Administration Lactated Ringer's 1,000 mls @ 40 mls/hr 10/05/24 11:50 10/05/24 09:22 IV 40 mls/hr .Q25H SAPPHIRE Administration Cefazolin Sodium 2 gm/ Sodium 110 mls @ 150 mls/hr 10/05/24 11:50 Chloride IV 10/05/24 12:33 INTRAOP ONE Lactated Ringer's 1,000 mls @ 70 mls/hr 10/05/24 11:50 IV .[id number] SAPPHIRE Magnesium Sulfate 1 gm/ 102 mls @ 408 mls/hr 10/05/24 14:15 10/05/24 09:49 Dextrose IV 10/05/24 14:29 Infused PREOP ONE Infusion Insulin Human Lispro 0 unit 10/05/24 11:50 Insulin Lispro 100 Unit/Ml Insuln.Pen SC 10/05/24 18:00 Q4H PRN PRN BG >/= 180, SEE PROTOCOL Protocol Ondansetron HCl 4 mg 10/05/24 11:50 Ondansetron 4 Mg/2 Ml Vial IV 10/05/24 11:51 INTRAOP ONE Phenazopyridine HCl 190 mg 10/05/24 11:50 10/05/24 09:40 Phenazopyridine 95 Mg Tablet PO 10/05/24 11:51 190 mg PREOP ONE Administration Scopolamine HBr 1 patch 10/05/24 11:50 10/05/24 09:39 Scopolamine 1mg/72hr Patch TD 10/05/24 11:51 1 patch PREOP ONE Administration PFSH Medical History Wears glasses Kidney stones Back pain Migraine headache History of IBS Gastric reflux Non-smoker Leg cramps History of pain when walking Fibromyalgia Home Medications ?Medication ?Instructions ?Recorded ?Last Taken ?Type tramadol 50 mg tablet 50 mg PO BID 04/21/17 10/04/24 History gabapentin 300 mg capsule 300 mg PO BID 07/08/24 10/04/24 History cyanocobalamin (vitamin B-12) 1,000 mcg PO DAILY 09/21/24 10/04/24 History 1,000 mcg tablet (Vitamin B-12) acetaminophen 500 mg capsule 1,500 mg PO BID PRN PRN 10/05/24 10/04/24 History fibromyalgia ibuprofen 800 mg tablet 800 mg PO Q8H PRN pain #30 tabs 10/05/24 Unknown Rx oxycodone-acetaminophen 5 mg-325 1 tab PO Q4H PRN pain 7 days #30 10/05/24 Unknown Rx mg tablet (Percocet) tabs Allergy/AdvReac Type Severity Reaction Status Date / Time No Known Allergies Allergy Verified 10/05/24 09:21 Family History Other Infertility Surgical History History of colposcopy S/P tooth extraction Social History household members: spouse current occupational status: employed current occupation: [employer] Smoking Status: Never smoker alcohol intake: current alcohol intake frequency: a few times a month substance use type: does not use seatbelt use: always additional social history: : Vishnu Review of Systems (Anesthesia) ROS Narrative System reviewed and no additional complaints, except as documented.
[2024-10-05] MEDS: Lactated Ringers 1,000 ML 1000 ML IV (10:22)
[2024-10-05] MEDS: Midazolam 2 MG/2 ML Syringe IV (10:23)
[2024-10-05] MEDS: Cefazolin 1 GM/5 ML Vial 2 GM IV (10:24)
[2024-10-05] MEDS: Lidocaine 1% (5 ml sdv) 5 ML Vial 10 ML IV (10:27)
--- NOTE | 2024-10-05 10:30 | UT_PTH ---
PATIENT: RICHARD GU [place] [facility] [id number] AGE/SX: 38/F ROOM: RE10/05/[address]: Dr. Kristi Howard DO : 1985 BED: DIS: 10/05/2024 SPEC #: [id number] RECD: 10/05/24 13:09 STATUS: DOMINICK JOB #: [id number] JORGE: 10/05/24 10:[address]: Kristi Howard DEPT: SURGICAL PATHOLOGY RECD BY: Rl Lopez ENTERED: 10/05/24 13:53 SP TYPE: UTERUS OTHR DR: Neo Bach, STREET CAR INSPECTOR-C Tissues: A - Uterus, NOS Procedures: Surgery Specimen Level V HEADER OPERATION: ERAS, total robotic hysterectomy bilateral salpingectomy PRE-OP DIAGNOSIS: Abnormal uterine bleeding, endometrial polyp TISSUE SUBMITTED: A- Uterus, cervix, bilateral fallopian tubes MICROSCOPIC DIAGNOSIS A. Uterus, uterine cervix, and bilateral fallopian tubes, total robotic hysterectomy and bilateral salpingectomies: * Squamous metaplasia and slight chronic cystic endocervicitis of the uterine cervix * Benign endometrium with areas of decidual alteration of the stroma, suggesting exogenous hormone therapy * Two benign fallopian tubes with a paratubal cyst of the right fallopian tube * Benign myometrium without active inflammation MICROSCOPIC DESCRIPTION Slides are reviewed. GROSS DESCRIPTION A. Received in formalin labeled with the patient's name and date of . Designated as uterus, cervix, bilateral fallopian tubes is a 61.5 g, 6.2 x 4.1 x 3.2 cm uterus with attached adnexa. The serosa is singh-pink and somewhat granular with possible focal adhesions and a 0.1 cm firm nodule (anterior). The attached cervix is pink-purple to red and measures 3.2 x 3.2; the 1.0 cm os is patent. Mucoid containing cyst are present. The specimen is inked as follows: [id number]-orange. Opening reveals a 4.1 x 2.2 cm endometrial canal lined by singh-pink, granular endometrium, measuring up to 0.2 cm thick. The myometrium is singh-pink and measures up to 1.8 cm thick. No lesions are identified. The pink-red bilateral fallopian tubes are fimbriated and measure 7.2 x 0.9 cm (L) and 7.3 x 0.6 cm (R); the right fallopian tube has a 0.8 cm paratubal cyst. Stonemason Apprentice sections are submitted as follows: A1: Anterior cervixA2: Posterior cervixA3: Anterior endometrium and myometriumA4: Posterior endometrium and myometriumA5: Left fallopian tubeA6: Right fallopian tubeA7: Anterior serosal nodule CT 10/05/2024 CPT:[id number]
[2024-10-05] MEDS: DiphenhydrAMINE 50 MG/ML Syringe 12.5 MG IV (10:47)
--- NOTE | 2024-10-05 11:56 | OP.PCM_ITS ---
Problems Associated Problem List Diagnoses (1) Abnormal uterine bleeding (AUB): (2) Fibromyalgia: Multi Select Codes Urinary/Genital Urinary/Genital CPT Codes: 79785 Cystoscopy and 23700 TLH+BS/O <250gr uterus Operative Report (Standard) Operative Information Date of Procedure: 10/05/24 Pre-Operative Diagnosis: pelvic pain and menorrhagia Post-Operative Diagnosis: pelvic pain and menorrhagia Surgery/Procedure Performed: total robotic hysterectomy, bilateral salpingectomy, cystoscopy entrepreneurship program director: Yes Financial Administrator: Tuan Manley Tasks completed by timber management assistant: Closing and Trocar Additional leasing assistant?: No Type of Anesthesia: General RN Documented Start/Stop Times: Operation Date: 10/05/24 10:30 Case Time Into Pre-Op 10/05/24 09:05 Out of Pre-Op 10/05/24 10:19 Anesthesia Start 10/05/24 10:22 Into Room 10/05/24 10:22 Procedure Start 10/05/24 10:51 Procedure Start Time: 10:22 Procedure Stop Time: 12:02 Select all DRAINS/GRAFTS/IMPLANTS that apply: None Estimated Blood Loss: 30cc Specimen collected: Yes Description of specimen(s) removed: uterus, cervix, fallopian tubes Description of surgery: Findings: 8 cm size uterus, normal appearing ovaries and tubes. On exploration of the abdominal cavity the uterus, adnexa, bowel, and liver were found to be normal. Cystoscopy showed no evidence of leaking at approximately 250 cc of normal saline, positive ureteral orifices and jet flow are seen and no suture material was appreciated in the bladder. Specimens removed: Uterus and cervix, Bilateral tubes Reason for surgery: This is a 38-year-old G-0-, who presented to my office with history of infertility and heavy periods as well as pelvic pain. 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 She does not tolerate control well. The planned procedure is for a robotic hysterectomy due to strong possibility of endometriosis. the risks benefits and alternatives were discussed with the patient the patient had a clear understanding of the procedure and a consent form was signed. Procedure: The patient was placed in the dorsal low lithotomy position and prepped and draped in the normal sterile fashion both abdominally and in the perineum. Her legs were placed in stirrups a Sauceda catheter was inserted into the urethra without difficulty. A weighted speculum was placed in the vagina and a single- tooth tenaculum was used to grasp the anterior lip of the cervix. An advincula uterine manipulator was inserted through the cervix without complication. It was then tied into place at the 2 and 10:00 locations on the cervix. Gloves were changed and attention was turned towards the abdomen. Approximately 23 cm above the pubic symphysis in the midline, and after Marcaine injection, a 8 mm incision was made. An 8 mm trocar was inserted through the laparoscope, then inserted into the abdomen under direct visualization using the laparoscope. Good abdominal placement was noted and no complications were appreciated. An air seal device was utilized to create pneumoperitoneum. At 12 cm lateral to the midline on the left and right sides 8 mm accessory ports were placed. Next a left upper quadrant 8 mm leasing assistant port site was placed. The patient was placed in steep Trendelenburg position. The robot was docked. The hysterectomy was initiated first by taking down the round ligament on each side using the vessel sealer device. The fallopian tubes were grasped and the underlying mesosalpinx was cauterized and cut to the level of the cornua. The broad ligament was then and taken down using the vessel sealer device. Next the bladder flap was taken down without complication. This was done using monopolar cautery to the level of the cervical vaginal junction. After the bladder flap was created, uterine vessels were then isolated and cauterized using the vessel sealer device and EndoShears. At this point the uterine vessels were taken down further starting from the ascending branch, dissecting along the edges of the cervix to the level of the cervical vaginal junction with hemostasis appreciated. The cervical vaginal junction was then using monopolar cautery in a circumferential pattern across the superior aspect of the cervix. The specimen was delivered through the vagina and sent to pathology. The remaining vaginal cuff was then closed using a V lock suture. This was performed in a running technique. Excellent hemostasis was obtained and good closure was noted. Irrigation was then performed. All operative sites were noted to be hemostatic. A cystoscopy was performed with a 70 degree cystoscope through the urethra into the bladder without complication. The bladder was instilled with approximately 250 cc of normal saline. Intraoperative images were made. Ureteral orifices and jets were identified, however very sluggish on the right side. A wistle tip catheter was inserted into the right ureter through the cystoscope and the ureter was found to be patent. No suture material was appreciated in the bladder. The bladder was then drained and cystoscope was removed. The abdominal cavity was again examined. All operative sites were noted to be hemostatic with exception of a small amount of oozing on the right side of the incision. Hemoblast was applied to this area. The trochars were removed under direct visualization without complication and pneumoperitoneum was reduced. At this point the skin was then closed using 4-0 Monocryl subcuticular stitch and sealed with surgical glue. The patient tolerated the procedure well sponge lap and needle counts were correct x2 the patient was taken to the recovery room in stable condition. Surgical Findings: normal uterus, fallopian tubes, and ovaries. No endometriosis appreciated Complications Complications: No Admit VTE Documentation VTE Present on Admission: No VTE Mechan Device Prophylaxis: SCD's VTE Pharm Prophylaxis ordered?: No Reason prophylaxis not ordered: Treatment Not Indicated
[2024-10-05] MEDS: fentaNYL 100 MCG/2 ML Ampul 200 MCG IV (12:02)
--- NOTE | 2024-10-05 12:18 | PCM.POST.ANE ---
Anesthesia: Postop Eval I Current Vital Signs Temperature: 97 F Pulse Rate: 82 Blood Pressure: 117/63 Respiratory Rate: 16 Pulse Ox: 100 Oxygen Delivery Method: Room Air Assessment Airway patent: Yes Spontaneous unlabored respirations: Yes Mental status: Awake and Calm nausea: No Vomiting: No Anesthesia Complication: No Fluid Hydration Crystalloid volume administer (ml): 1,000 Total IV fluid infused: 1,000 Progress Note Anesthesia document: Postop Eval 1 completed: Yes
[2024-10-05] MEDS: Ketorolac 30 MG/ML Syringe IV (12:36)
--- NOTE | 2024-10-05 14:10 | POSTOPAN2_ITS ---
Anesthesia Postop Eval I Sum Postop Eval Completion status Anesthesia document: Postop Eval 1 completed: Yes Anesthesia Postop Eval I Summary Anesthesia Postop Eval I Summary: Anesthesia Postop Eval I: Assessment Summary Airway patent Yes 10/05/24 12:19 TASSEL [email or web address] Spontaneous unlabored Yes 10/05/24 12:19 TASSEL [email or web address] respirations Mental status Awake,Calm 10/05/24 12:19 TASSEL [email or web address] nausea No 10/05/24 12:19 TASSEL [email or web address] Vomiting No 10/05/24 12:19 TASSEL [email or web address] Anesthesia Postop Eval I: Fluid Summary Crystalloid volume administer 1,000 10/05/24 12:19 TASSEL [email or web address] (ml) Colloids volume administered ( ml) Blood Product volume administered (ml) Total IV fluid infused 1,000 10/05/24 12:19 TASSEL [email or web address] Anesthesia Postop Eval I: Summary Notes Anesthesia Complication No 10/05/24 12:19 TASSEL [email or web address] Anesthesia Complication Comment: Post-operative progress note Anesthesia: Postop Eval II Evaluation Mental status: Awake and Calm Pain Level: 0 nausea: No Vomiting: No Complications Anesthesia Complication: No
--- NOTE | 2024-10-05 14:10 | PCM.POSTANE2 ---
Anesthesia Postop Eval I Sum Postop Eval Completion status Anesthesia document: Postop Eval 1 completed: Yes Anesthesia Postop Eval I Summary Anesthesia Postop Eval I Summary: Anesthesia Postop Eval I: Assessment Summary Airway patent Yes 10/05/24 12:19 PLATE SHEAR [email or web address] Spontaneous unlabored Yes 10/05/24 12:19 PLATE SHEAR [email or web address].[email or web address] respirations Mental status Awake,Calm 10/05/24 12:19 PLATE SHEAR [email or web address] nausea No 10/05/24 12:19 PLATE SHEAR [email or web address] Vomiting No 10/05/24 12:19 PLATE SHEAR [email or web address] Anesthesia Postop Eval I: Fluid Summary Crystalloid volume administer 1,000 10/05/24 12:19 PLATE SHEAR [email or web address] (ml) Colloids volume administered ( ml) Blood Product volume administered (ml) Total IV fluid infused 1,000 10/05/24 12:19 PLATE SHEAR [email or web address].[email or web address] Anesthesia Postop Eval I: Summary Notes Anesthesia Complication No 10/05/24 12:19 PLATE SHEAR OPERATOR.[email or web address] Anesthesia Complication Comment: Post-operative progress note Anesthesia: Postop Eval II Evaluation Mental status: Awake and Calm Pain Level: 0 nausea: No Vomiting: No Complications Anesthesia Complication: No
[2024-10-05] MEDS: Lactated Ringers @ 70 MLS/HR 70 ML IV (14:16)
[2024-10-05] MEDS: HYDROcodone Bitartrate/Apap 5/325 Tablet PO (15:23)
== END 2024-10-05 17:51 | disposition home or self-care (01) ==
LOC: SDC 08:59 → AC 08:59
PROVIDERS: Anesthesiology; PCP Nurse Practitioner Family; Referring Provider Obstetrics & Gynecology; Visit Provider Obstetrics & Gynecology
PROC: 0UT90ZZ Resection of Uterus, Open Approach (ICD-10-PCS; CPT 58571; principal; 2024-10-05 10:10)
DX: N93.9 Abnormal uterine and vaginal bleeding, unspecified (principal); N84.0 Polyp of corpus uteri; N87.9 Dysplasia of cervix uteri, unspecified; N72 Inflammatory disease of cervix uteri; N83.8 Other noninflammatory disorders of ovary, fallopian tube and broad ligament; N97.9 Female infertility, unspecified; M79.7 Fibromyalgia; Z79.899 Other long term (current) drug therapy
CPT/HCPCS: 58571; S2900; 00840; 36415; 81025; 82962; 83735; 85027; 86850; 86900; 86901; 88307; C1758; J2405; J3475

== ENCOUNTER 2024-11-01 16:43 | Outpatient (CLI) | payer BC, SELFPAY ==
[2024-11-01 18:45] LABS: Barbiturate Urine NEGATIVE (< 200 ng/mL); Benzodiazepine Urine NEGATIVE (< 200 ng/mL); PCP Urine NEGATIVE (< 25 ng/mL); THC Urine NEGATIVE (< 50 ng/mL)
== END 2024-11-01 23:59 | disposition home or self-care (01) ==
LOC: LAB 16:45
PROVIDERS: PCP Nurse Practitioner Family; Referring Provider Anesthesiology Pain Medicine; Visit Provider Anesthesiology Pain Medicine
DX: Z00.00 Encounter for general adult medical examination without abnormal findings (principal)
CPT/HCPCS: 80307